=== PATIENT | female | born 1955 | race African-American/Black ===

== ENCOUNTER 2017-06-28 07:48 | Inpatient (IN) | payer MEDICARE, MEDICAID ==
[~2017-06-28] VITALS: Ht 157.5 cm; Wt 73.5 kg
[~2017-06-28 07:48] MED LIST: CLON.2 PO; HYDR25TA PO; LISI-661 PO; METH10SO PO
[2017-06-28] MEDS ORDERED: METH10 PO (07:57)
[2017-06-28] MEDS ORDERED: QUET200T PO (07:57)
[2017-06-28] MEDS ORDERED: CloNIDine HCL 0.2 MG TABLET PO ONE (08:15)
[2017-06-28 08:25] LABS: BASOPHILS % (AUTO) 0.7 % (0.0-2.0); EOSINOPHILS % (AUTO) 1.2 % (1.0-6.0); HEMATOCRIT 45.2 % (36-46); HEMOGLOBIN 14.9 g/dL (12.0-16.0); LYMPHOCYTES # (AUTO) 3.8 K/uL (1.0-4.8); LYMPHOCYTES % (AUTO) 37.5 % (22.0-44.0); MEAN CORPUSCULAR HEMOGLOBIN 26.3 pg (26.0-34.0); MEAN CORPUSCULAR HGB CONC 32.9 G/dL (31.0-37.0); MEAN CORPUSCULAR VOLUME 80 fL (80-100); MONOCYTES # (AUTO) 0.5 K/uL (0.1-1.0); MONOCYTES % (AUTO) 4.7 % (2.0-9.0); NEUTROPHILS # (AUTO) 5.6 K/uL (1.8-7.7); NEUTROPHILS % (AUTO) 55.9 % (40.0-70.0); PLATELET COUNT (AUTO) 251 K/uL (150-450); RED BLOOD CELL COUNT(AUTO) 5.67 MIL/uL (4.00-5.20); RED CELL DISTRIBUTION WIDTH 13.8 % (11.5-14.5)
[2017-06-28 08:33] LABS: ANION GAP 6 mmol/L (8-16); CALCIUM, TOTAL 8.9 mg/dL (8.8-10.5); CARBON DIOXIDE 33 mmol/L (22-29); CHLORIDE 100 mmol/L (98-107); CREATININE 1.08 mg/dL (0.60-1.30); GLOMERULAR FILTR. RATE CALC > 60 mL/min (>60); POTASSIUM 3.6 mmol/L (3.5-5.1); SODIUM SERUM 139 mmol/L (136-145); UREA NITROGEN, BLOOD 8 mg/dL (7-18)
[2017-06-28 08:39] LABS: ALANINE AMINOTRANSFERASE 28 U/L (12-78); ALBUMIN 3.9 g/dL (3.4-5.0); ASPARTATE AMINOTRANSFERASE 30 U/L (15-37); BILIRUBIN,TOTAL 0.3 mg/dL (0.1-1.0)
[2017-06-28 08:41] LABS: ACETAMINOPHEN < 2 mcg/mL (10-30); SALICYLATE < 2.8 mg/dL (2.8-20.0)
[2017-06-28] MEDS ORDERED: HALOPERIDOL 5 MG TABLET PO PRN (09:15)
[2017-06-28 12:20] VITALS: BP 157/101
[2017-06-28] MEDS ORDERED: PNEUMOCOCCAL VACCINE POLYVALENT 0.5 ML VIAL [PPSV23] IM ONE (13:00)
[2017-06-28] MEDS ORDERED: INFLUENZA VIRUS VACCINE QVS 2017-18 (3YR+)/PF 60 MCG/0.5 ML SYRINGE IM ONE (13:00)
[2017-06-28] MEDS ORDERED: AmLODIPine BESYLATE 10 MG TABLET PO ONE (13:15)
[2017-06-28] MEDS: LORazepam 2 MG TABLET PO PRN (15:00)
[2017-06-28 15:01] VITALS: BP 141/76
[2017-06-28 16:10] VITALS: BP 150/86
[2017-06-28] MEDS: CloNIDine HCL 0.2 MG TABLET PO SCH (16:30)
[2017-06-28 17:30] VITALS: BP 144/82
[2017-06-28] MEDS: ZOLPIDEM TARTRATE 10 MG TABLET PO PRN (22:26)
[2017-06-29 06:40] VITALS: BP 148/84
[2017-06-29] MEDS: LORazepam 2 MG TABLET PO PRN (06:52)
[2017-06-29 08:37] VITALS: BP 134/82
[2017-06-29] MEDS: CloNIDine HCL 0.2 MG TABLET PO SCH ×2 (08:54→16:13)
[2017-06-29] MEDS: AmLODIPine BESYLATE 10 MG TABLET PO SCH (08:54)
[2017-06-29] MEDS: QUEtiapine FUMARATE 200 MG TABLET PO SCH ×2 (10:32→16:13)
[2017-06-29 16:06] VITALS: BP 109/61
[2017-06-29] MEDS ORDERED: IBUPROFEN 600 MG TABLET PO PRN (16:45)
[2017-06-29 17:51] VITALS: BP 113/68
[2017-06-30 05:58] VITALS: BP 136/77
[2017-06-30] MEDS: QUEtiapine FUMARATE 200 MG TABLET PO SCH ×2 (08:11→17:35)
[2017-06-30] MEDS: CloNIDine HCL 0.2 MG TABLET PO SCH ×2 (08:11→17:35)
[2017-06-30] MEDS: AmLODIPine BESYLATE 10 MG TABLET PO SCH (08:11)
[2017-06-30 08:36] VITALS: BP 111/64
[2017-06-30] MEDS ORDERED: PROMETHAZINE HCL 25 MG/ML VIAL IM PRN (11:45)
[2017-06-30] MEDS ORDERED: IBUPROFEN 600 MG TABLET PO PRN (11:45)
[2017-06-30] MEDS ORDERED: MAG HYDROX/AL HYDROX/SIMETH ES 30 ML SUSPENSION UDCUP PO PRN (11:45)
[2017-06-30] MEDS ORDERED: HydrOXYzine PAMOATE 50 MG CAPSULE PO PRN (11:45)
[2017-06-30 12:00] VITALS: BP 113/66
[2017-06-30] MEDS: LORazepam 2 MG TABLET PO PRN ×2 (15:15→19:52)
[2017-06-30 16:23] VITALS: BP 102/64
[2017-06-30 17:35] VITALS: BP 126/82
[2017-06-30 19:00] VITALS: BP 114/67
[2017-06-30] MEDS: ZOLPIDEM TARTRATE 10 MG TABLET PO PRN (22:12)
[2017-07-01] VITALS (8 sets, daily range): BP systolic 112–125; BP diastolic 70–88
[2017-07-01] MEDS: LORazepam 2 MG TABLET PO PRN ×2 (00:03→18:58)
[2017-07-01] MEDS: CloNIDine HCL 0.2 MG TABLET PO SCH ×2 (08:59→17:11)
[2017-07-01] MEDS: QUEtiapine FUMARATE 200 MG TABLET PO SCH ×2 (08:59→17:11)
[2017-07-02 02:31] VITALS: BP 127/73
[2017-07-02 04:26] VITALS: BP 127/73
[2017-07-02 08:06] VITALS: BP 138/88
[2017-07-02] MEDS: LORazepam 2 MG TABLET PO PRN ×2 (08:17→19:12)
[2017-07-02] MEDS: QUEtiapine FUMARATE 200 MG TABLET PO SCH ×2 (08:17→16:34)
[2017-07-02] MEDS: CloNIDine HCL 0.2 MG TABLET PO SCH ×2 (08:17→16:34)
[2017-07-02 09:53] VITALS: BP 138/88
[2017-07-02 16:00] VITALS: BP 134/86
[2017-07-02 16:07] VITALS: BP 134/86
[2017-07-02] MEDS: ZOLPIDEM TARTRATE 10 MG TABLET PO PRN (21:54)
[2017-07-03 01:56] VITALS: BP 137/89
[2017-07-03 02:00] VITALS: BP 137/89
[2017-07-03] MEDS: LORazepam 2 MG TABLET PO PRN (08:23)
[2017-07-03] MEDS: QUEtiapine FUMARATE 200 MG TABLET PO SCH (08:23)
[2017-07-03] MEDS: CloNIDine HCL 0.2 MG TABLET PO SCH (08:23)
[2017-07-03 08:43] VITALS: BP 135/92
== END 2017-07-03 16:30 | disposition home or self-care (01) | DRG 885 ==
LOC: EMS 07:50 → B2X 10:29
PROC: 3E0234Z Introduction of Serum, Toxoid and Vaccine into Muscle, Percutaneous Approach (ICD-10-PCS; principal; 2017-06-28)
DX: F31.5 Bipolar disorder, current episode depressed, severe, with psychotic features (principal); E11.9 Type 2 diabetes mellitus without complications; R45.851 Suicidal ideations; F15.90 Other stimulant use, unspecified, uncomplicated; G89.29 Other chronic pain; I10 Essential (primary) hypertension; J45.909 Unspecified asthma, uncomplicated; M19.90 Unspecified osteoarthritis, unspecified site; Z59.0 Homelessness; Z79.899 Other long term (current) drug therapy; Z87.891 Personal history of nicotine dependence; Z91.5 Personal history of self-harm; Z23 Encounter for immunization
CPT/HCPCS: 90471; 99285; G0480; G0481

== ENCOUNTER 2017-08-15 21:38 | Inpatient (IN) | payer MEDICARE, MEDICAID ==
[~2017-08-15] VITALS: Ht 157.5 cm; Wt 80.3 kg
[~2017-08-15 21:38] MED LIST changes: -HYDR25TA PO; -LISI-661 PO; -METH10SO PO; +QUET200T PO
[2017-08-15] MEDS ORDERED: TRAZ150 PO (22:37)
[2017-08-15] MEDS ORDERED: FAMO20 PO (22:37)
[2017-08-15] MEDS ORDERED: NAPR250T4 PO (22:38)
[2017-08-15 22:49] LABS: BASOPHILS # (AUTO) 0.06 K/uL (0.00-0.20); BASOPHILS % (AUTO) 0.5 % (0.0-2.0); EOSINOPHILS # (AUTO) 0.31 K/uL (0.00-0.70); EOSINOPHILS % (AUTO) 2.68 % (1.0-6.0); HEMATOCRIT 37.8 % (36-46); HEMOGLOBIN 12.1 g/dL (12.0-16.0); LYMPHOCYTES # (AUTO) 5.9 K/uL (1.0-4.8); LYMPHOCYTES % (AUTO) 50.9 % (22.0-44.0); MEAN CORPUSCULAR HEMOGLOBIN 25.7 pg (26.0-34.0); MEAN CORPUSCULAR HGB CONC 31.9 G/dL (31.0-37.0); MEAN CORPUSCULAR VOLUME 81 fL (80-100); MONOCYTES # (AUTO) 0.9 K/uL (0.1-1.0); MONOCYTES % (AUTO) 7.5 % (2.0-9.0); NEUTROPHILS # (AUTO) 4.5 K/uL (1.8-7.7); NEUTROPHILS % (AUTO) 38.5 % (40.0-70.0); PLATELET COUNT (AUTO) 306 K/uL (150-450); RED CELL DISTRIBUTION WIDTH 14.3 % (11.5-14.5); WHITE BLOOD COUNT (AUTO) 11.6 K/uL (4.5-11.0)
[2017-08-15 23:00] LABS: ANION GAP 8 mmol/L (8-16); CALCIUM, TOTAL 8.9 mg/dL (8.8-10.5); CARBON DIOXIDE 28 mmol/L (22-29); CHLORIDE 102 mmol/L (98-107); CREATININE 0.99 mg/dL (0.60-1.30); GLOMERULAR FILTR. RATE CALC > 60 mL/min (>60); POTASSIUM 4.2 mmol/L (3.5-5.1); SODIUM SERUM 138 mmol/L (136-145); UREA NITROGEN, BLOOD 22 mg/dL (7-18)
[2017-08-15 23:05] LABS: ALANINE AMINOTRANSFERASE 30 U/L (12-78); ALBUMIN 3.7 g/dL (3.4-5.0); ASPARTATE AMINOTRANSFERASE 27 U/L (15-37); BILIRUBIN,TOTAL 0.2 mg/dL (0.1-1.0); TOTAL PROTEIN, SERUM 7.9 g/dL (6.4-8.2)
[2017-08-16] MEDS ORDERED: ACETAMINOPHEN 500 MG TABLET PO ONE (00:30)
[2017-08-16] MEDS: ZOLPIDEM TARTRATE 10 MG TABLET PO PRN (02:28)
[2017-08-16 03:51] VITALS: BP 102/62
[2017-08-16 04:28] LABS: APPEARANCE,URINE CLEAR (CLEAR); GLUCOSE, URINE (UA) NEGATIVE (NEGATIVE); KETONES,URINE NEGATIVE (NEGATIVE); LEUKOCYTE ESTERASE ,URINE MODERATE (NEGATIVE); OCCULT BLOOD,URINE NEGATIVE (NEGATIVE); PH,URINE 6.5 (5.0-8.0); PROTEIN,URINE NEGATIVE (NEGATIVE)
[2017-08-16 04:31] LABS: ADD UA MICROSCOPIC YES
[2017-08-16 04:43] LABS: RBC,URINE None Seen /HPF (0-2); RENAL EPITHELIAL CELLS,URINE Few /LPF (None Seen); SQUAMOUS EPITHELIAL CELL,UR Few /LPF (None Seen)
[2017-08-16] MEDS ORDERED: PNEUMOCOCCAL VACCINE POLYVALENT 0.5 ML VIAL [PPSV23] IM ONE (05:45)
[2017-08-16] MEDS: LORazepam 2 MG TABLET PO PRN (08:37)
[2017-08-16] MEDS: CIPROFLOXACIN HCL 500 MG TABLET PO SCH ×2 (08:37→16:18)
[2017-08-16] MEDS: HALOPERIDOL 5 MG TABLET PO PRN (08:37)
[2017-08-16 09:57] VITALS: BP 157/79
[2017-08-16] MEDS: IBUPROFEN 600 MG TABLET PO PRN (09:57)
[2017-08-16] MEDS: QUEtiapine FUMARATE 200 MG TABLET PO SCH (16:19)
[2017-08-16 17:00] VITALS: BP 138/77
[2017-08-16] MEDS: TraZODone HCL 150 MG TABLET PO SCH (20:21)
[2017-08-17 02:25] VITALS: BP 173/77
[2017-08-17] MEDS: ZOLPIDEM TARTRATE 10 MG TABLET PO PRN (02:29)
[2017-08-17] MEDS: LORazepam 2 MG TABLET PO PRN ×3 (02:30→14:40)
[2017-08-17] MEDS: QUEtiapine FUMARATE 200 MG TABLET PO SCH ×2 (08:05→16:55)
[2017-08-17] MEDS: CIPROFLOXACIN HCL 500 MG TABLET PO SCH ×2 (08:05→16:55)
[2017-08-17 08:15] VITALS: BP 161/72
[2017-08-17] MEDS: HALOPERIDOL 5 MG TABLET PO PRN ×2 (10:40→14:40)
[2017-08-17 16:57] VITALS: BP 149/90
[2017-08-17] MEDS: TraZODone HCL 150 MG TABLET PO SCH (20:13)
[2017-08-18 03:42] VITALS: BP 144/91
[2017-08-18] MEDS: LORazepam 2 MG TABLET PO PRN ×2 (03:45→14:29)
[2017-08-18 08:45] VITALS: BP 152/103
[2017-08-18] MEDS: QUEtiapine FUMARATE 200 MG TABLET PO SCH ×2 (09:00→16:43)
[2017-08-18] MEDS: CIPROFLOXACIN HCL 500 MG TABLET PO SCH ×2 (09:00→16:42)
[2017-08-18] MEDS: AmLODIPine BESYLATE 5 MG TABLET PO SCH (09:39)
[2017-08-18] MEDS: IBUPROFEN 600 MG TABLET PO PRN (10:53)
[2017-08-18] MEDS: HALOPERIDOL 5 MG TABLET PO PRN (14:29)
[2017-08-18] MEDS: TraZODone HCL 150 MG TABLET PO SCH (20:23)
[2017-08-19] MEDS: QUEtiapine FUMARATE 200 MG TABLET PO SCH (08:11)
[2017-08-19] MEDS: AmLODIPine BESYLATE 5 MG TABLET PO SCH (08:11)
[2017-08-19] MEDS: CIPROFLOXACIN HCL 500 MG TABLET PO SCH (08:11)
[2017-08-19 09:05] VITALS: BP 152/95
[2017-08-19] MEDS: IBUPROFEN 600 MG TABLET PO PRN (09:08)
[2017-08-19] MEDS: LORazepam 2 MG TABLET PO PRN (10:16)
[2017-08-19] MEDS ORDERED: CIPR-278 PO (10:42)
[2017-08-19] MEDS ORDERED: AMLO-511 PO (10:42)
== END 2017-08-19 14:10 | disposition home or self-care (01) | DRG 885 ==
LOC: EMS 21:40 → 3EX 23:45
PROVIDERS: ADMIT Psychiatry & Neurology Child & Adolescent Psychiatry; ATTEND Psychiatry & Neurology Child & Adolescent Psychiatry
PROC: 3E0234Z Introduction of Serum, Toxoid and Vaccine into Muscle, Percutaneous Approach (ICD-10-PCS; principal; 2017-08-16)
DX: F25.1 Schizoaffective disorder, depressive type (principal); R45.851 Suicidal ideations; R45.850 Homicidal ideations; N39.0 Urinary tract infection, site not specified; F17.210 Nicotine dependence, cigarettes, uncomplicated; I10 Essential (primary) hypertension; F19.11 Other psychoactive substance abuse, in remission; J45.909 Unspecified asthma, uncomplicated; M19.90 Unspecified osteoarthritis, unspecified site; F31.9 Bipolar disorder, unspecified; Z71.6 Tobacco abuse counseling; Z79.899 Other long term (current) drug therapy; Z23 Encounter for immunization
CPT/HCPCS: 80307; 87086; 90471; 99285; 99406; G0480

== ENCOUNTER 2018-02-07 09:23 | Inpatient (IN) | payer MEDICARE, MEDICAID ==
[~2018-02-07] VITALS: Ht 157.5 cm; Wt 78.9 kg
[~2018-02-07 09:23] MED LIST changes: +AMLO-511 PO; +CIPR-278 PO; -CLON.2 PO; +TRAZ150 PO
[2018-02-07 09:43] LABS: EOSINOPHILS % (AUTO) 0.6 % (1.0-6.0); HEMATOCRIT 39.4 % (36-46); HEMOGLOBIN 13.1 g/dL (12.0-16.0); LYMPHOCYTES # (AUTO) 2.5 K/uL (1.0-4.8); LYMPHOCYTES % (AUTO) 37.1 % (22.0-44.0); MEAN CORPUSCULAR HEMOGLOBIN 26.3 pg (26.0-34.0); MEAN CORPUSCULAR HGB CONC 33.2 G/dL (31.0-37.0); MEAN CORPUSCULAR VOLUME 79 fL (80-100); MONOCYTES # (AUTO) 0.5 K/uL (0.1-1.0); MONOCYTES % (AUTO) 7.5 % (2.0-9.0); NEUTROPHILS # (AUTO) 3.5 K/uL (1.8-7.7); NEUTROPHILS % (AUTO) 52.8 % (40.0-70.0); PLATELET COUNT (AUTO) 228 K/uL (150-450); RED BLOOD CELL COUNT(AUTO) 4.97 MIL/uL (4.00-5.20); RED CELL DISTRIBUTION WIDTH 14.6 % (11.5-14.5)
[2018-02-07 09:53] LABS: ANION GAP 12 mmol/L (8-16); CALCIUM, TOTAL 8.7 mg/dL (8.8-10.5); CARBON DIOXIDE 27 mmol/L (22-29); CHLORIDE 105 mmol/L (98-107); CREATININE 0.95 mg/dL (0.60-1.30); GLOMERULAR FILTR. RATE CALC > 60 mL/min (>60); GLUCOSE,RANDOM 105 mg/dL (70-110); POTASSIUM 3.5 mmol/L (3.5-5.1); SODIUM SERUM 144 mmol/L (136-145); UREA NITROGEN, BLOOD 7 mg/dL (7-18)
[2018-02-07 09:59] LABS: ALANINE AMINOTRANSFERASE 32 U/L (12-78); ALBUMIN 3.7 g/dL (3.4-5.0); ALKALINE PHOSPHATASE 77 U/L (46-116); ASPARTATE AMINOTRANSFERASE 33 U/L (15-37); BILIRUBIN,TOTAL 0.3 mg/dL (0.1-1.0); TOTAL PROTEIN, SERUM 8.5 g/dL (6.4-8.2)
[2018-02-07] MEDS ORDERED: LORazepam 1 MG TABLET PO ONE (10:30)
[2018-02-07] MEDS ORDERED: QUEtiapine FUMARATE 100 MG TABLET PO ONE (10:30)
[2018-02-07] MEDS ORDERED: QUEtiapine FUMARATE 100 MG TABLET PO PRN (10:45)
[2018-02-07 10:55] LABS: AMPHET/METH SCREEN,URINE NEGATIVE (NEGATIVE); BARBITURATE SCREEN, URINE NEGATIVE (NEGATIVE); BENZODIAZEPINES SCREEN,URINE POSITIVE (NEGATIVE); CANNABINOID SCREEN,URINE NEGATIVE (NEGATIVE); COCAINE SCREEN,URINE POSITIVE (NEGATIVE); METHADONE SCREEN, URINE NEGATIVE (NEGATIVE); OPIATE SCREEN,URINE NEGATIVE (NEGATIVE); PHENCYCLIDINE SCREEN,URINE NEGATIVE (NEGATIVE)
[2018-02-07 13:13] VITALS: BP 135/67
[2018-02-07 16:06] VITALS: BP 142/78
[2018-02-08 07:20] VITALS: BP 143/62
[2018-02-08 08:11] VITALS: BP 136/74
[2018-02-08] MEDS: LORazepam 2 MG TABLET PO PRN (10:17)
[2018-02-08] MEDS ORDERED: ACETAMINOPHEN 325 MG TABLET PO PRN (14:45)
[2018-02-08 16:16] VITALS: BP 130/64
[2018-02-08] MEDS: IBUPROFEN 600 MG TABLET PO PRN (16:23)
[2018-02-08] MEDS: QUEtiapine FUMARATE 200 MG TABLET PO SCH (16:34)
[2018-02-09 02:10] VITALS: BP 132/72
[2018-02-09] MEDS: IBUPROFEN 600 MG TABLET PO PRN ×2 (02:10→08:14)
[2018-02-09] MEDS: QUEtiapine FUMARATE 200 MG TABLET PO SCH ×2 (08:05→16:49)
[2018-02-09] MEDS: SERTRALINE HCL 50 MG TABLET PO SCH (08:05)
[2018-02-09 08:14] VITALS: BP 125/71
[2018-02-09] MEDS: LORazepam 2 MG TABLET PO PRN (10:39)
[2018-02-09 16:31] VITALS: BP 127/73
[2018-02-10 00:01] VITALS: BP 130/89
[2018-02-10 02:39] VITALS: BP 132/90
[2018-02-10 08:26] VITALS: BP 126/73
[2018-02-10] MEDS: SERTRALINE HCL 50 MG TABLET PO SCH (08:32)
[2018-02-10] MEDS: QUEtiapine FUMARATE 200 MG TABLET PO SCH ×2 (08:32→16:44)
[2018-02-10 09:16] LABS: ALANINE AMINOTRANSFERASE 22 U/L (12-78); ALBUMIN 3.5 g/dL (3.4-5.0); ALKALINE PHOSPHATASE 65 U/L (46-116); ANION GAP 7 mmol/L (8-16); ASPARTATE AMINOTRANSFERASE 20 U/L (15-37); BILIRUBIN,TOTAL 0.3 mg/dL (0.1-1.0); CALCIUM, TOTAL 8.6 mg/dL (8.8-10.5); CARBON DIOXIDE 29 mmol/L (22-29); CHLORIDE 103 mmol/L (98-107); CHOL/HDL RATIO 3.2 (3.9-5.7); CHOLESTEROL 185 mg/dL (131-200); CREATINE KINASE, TOTAL 47 U/L (26-192); CREATININE 0.99 mg/dL (0.60-1.30); GLOMERULAR FILTR. RATE CALC > 60 mL/min (>60); GLUCOSE,RANDOM 89 mg/dL (70-110); HDL CHOLESTEROL 57 mg/dL (40-60); LDL CHOL (CALC.) 107 mg/dL (0-130); POTASSIUM 3.6 mmol/L (3.5-5.1); SODIUM SERUM 139 mmol/L (136-145); THYROID STIMULATING HORMONE 1.81 uIU/mL (0.36-3.74); TOTAL PROTEIN, SERUM 8.2 g/dL (6.4-8.2); TRIGLYCERIDES 104 mg/dL (15-150); UREA NITROGEN, BLOOD 15 mg/dL (7-18)
[2018-02-10 10:03] LABS: FOLATE SERUM 7.4 ng/mL (5.4-)
[2018-02-10 16:21] VITALS: BP 129/77
[2018-02-10 17:01] VITALS: BP 127/67
[2018-02-10] MEDS: TraMADol HCL 50 MG TABLET PO PRN (17:01)
[2018-02-10] MEDS: BACITRACIN 28.4 GM OINTMENT TP SCH (17:01)
[2018-02-10] MEDS: ZOLPIDEM TARTRATE 10 MG TABLET PO PRN (23:52)
[2018-02-11 00:01] VITALS: BP 130/76
[2018-02-11] MEDS: LORazepam 2 MG TABLET PO PRN (05:27)
[2018-02-11] MEDS: QUEtiapine FUMARATE 200 MG TABLET PO SCH ×2 (08:34→16:38)
[2018-02-11] MEDS: SERTRALINE HCL 50 MG TABLET PO SCH (08:34)
[2018-02-11] MEDS: BACITRACIN 28.4 GM OINTMENT TP SCH ×2 (08:37→16:38)
[2018-02-11 08:41] VITALS: BP 130/90
[2018-02-11 16:08] VITALS: BP 119/64
[2018-02-11] MEDS: ZOLPIDEM TARTRATE 10 MG TABLET PO PRN (21:00)
[2018-02-12 01:24] VITALS: BP 137/80
[2018-02-12] MEDS: LORazepam 2 MG TABLET PO PRN ×2 (03:27→14:19)
[2018-02-12 07:46] VITALS: BP 140/77
[2018-02-12] MEDS: QUEtiapine FUMARATE 200 MG TABLET PO SCH ×2 (08:20→16:44)
[2018-02-12] MEDS: BACITRACIN 28.4 GM OINTMENT TP SCH ×2 (08:20→16:45)
[2018-02-12] MEDS: SERTRALINE HCL 50 MG TABLET PO SCH (08:20)
[2018-02-12 08:28] VITALS: BP 140/77
[2018-02-12 16:35] VITALS: BP 117/76
[2018-02-12] MEDS: ZOLPIDEM TARTRATE 10 MG TABLET PO PRN (20:54)
[2018-02-13] MEDS: LORazepam 2 MG TABLET PO PRN ×2 (02:10→08:21)
[2018-02-13 03:18] VITALS: BP 138/72
[2018-02-13] MEDS: SERTRALINE HCL 50 MG TABLET PO SCH (08:16)
[2018-02-13] MEDS: QUEtiapine FUMARATE 200 MG TABLET PO SCH ×2 (08:16→16:38)
[2018-02-13] MEDS: BACITRACIN 28.4 GM OINTMENT TP SCH ×2 (08:17→16:38)
[2018-02-13 08:30] VITALS: BP 140/79
[2018-02-13 14:39] VITALS: BP 141/89
[2018-02-13] MEDS: TraMADol HCL 50 MG TABLET PO PRN (14:39)
[2018-02-13 16:19] VITALS: BP 132/82
[2018-02-13] MEDS: ZOLPIDEM TARTRATE 10 MG TABLET PO PRN (21:05)
[2018-02-14 01:38] VITALS: BP 131/69
[2018-02-14] MEDS: LORazepam 2 MG TABLET PO PRN ×3 (03:11→15:41)
[2018-02-14 08:10] VITALS: BP 128/98
[2018-02-14] MEDS: SERTRALINE HCL 50 MG TABLET PO SCH (08:26)
[2018-02-14] MEDS: BACITRACIN 28.4 GM OINTMENT TP SCH ×2 (08:27→17:09)
[2018-02-14] MEDS: QUEtiapine FUMARATE 200 MG TABLET PO SCH ×2 (08:27→17:09)
[2018-02-14 09:03] VITALS: BP 125/84
[2018-02-14 16:06] VITALS: BP 125/85
[2018-02-14 19:20] VITALS: BP 137/81
[2018-02-14] MEDS: TraMADol HCL 50 MG TABLET PO PRN (19:20)
[2018-02-15 03:50] VITALS: BP 140/75
[2018-02-15] MEDS: LORazepam 2 MG TABLET PO PRN ×2 (03:50→08:15)
[2018-02-15] MEDS: SERTRALINE HCL 50 MG TABLET PO SCH (08:10)
[2018-02-15] MEDS: QUEtiapine FUMARATE 200 MG TABLET PO SCH ×2 (08:10→16:08)
[2018-02-15] MEDS: BACITRACIN 28.4 GM OINTMENT TP SCH ×2 (08:11→16:08)
[2018-02-15 08:31] VITALS: BP 132/82
[2018-02-15 16:15] VITALS: BP 136/76
[2018-02-15] MEDS: ZOLPIDEM TARTRATE 10 MG TABLET PO PRN (20:14)
[2018-02-16 06:26] VITALS: BP 134/72
[2018-02-16 08:35] VITALS: BP 127/76
[2018-02-16] MEDS: QUEtiapine FUMARATE 200 MG TABLET PO SCH ×2 (08:59→16:38)
[2018-02-16] MEDS: SERTRALINE HCL 100 MG TABLET PO SCH (08:59)
[2018-02-16] MEDS: BACITRACIN 28.4 GM OINTMENT TP SCH ×2 (08:59→16:38)
[2018-02-16] MEDS: LORazepam 2 MG TABLET PO PRN (12:15)
[2018-02-16 16:31] VITALS: BP 137/81
[2018-02-16] MEDS: ZOLPIDEM TARTRATE 10 MG TABLET PO PRN (20:55)
[2018-02-17 05:32] VITALS: BP 129/77
[2018-02-17] MEDS ORDERED: SERT100T12 PO (07:45)
[2018-02-17] MEDS: QUEtiapine FUMARATE 200 MG TABLET PO SCH (08:19)
[2018-02-17] MEDS: SERTRALINE HCL 100 MG TABLET PO SCH (08:19)
[2018-02-17 08:20] VITALS: BP 140/89
[2018-02-17] MEDS: BACITRACIN 28.4 GM OINTMENT TP SCH (08:20)
[2018-02-17] MEDS: LORazepam 2 MG TABLET PO PRN ×2 (08:35→13:49)
== END 2018-02-17 15:30 | disposition home or self-care (01) | DRG 885 ==
LOC: EMS 09:25 → B2X 11:32
DX: F25.0 Schizoaffective disorder, bipolar type (principal); R45.851 Suicidal ideations; M41.9 Scoliosis, unspecified; Z59.0 Homelessness; D72.829 Elevated white blood cell count, unspecified; E03.9 Hypothyroidism, unspecified; R45.87 Impulsiveness; F32.9 Major depressive disorder, single episode, unspecified; F41.9 Anxiety disorder, unspecified; G89.29 Other chronic pain; I10 Essential (primary) hypertension; M19.90 Unspecified osteoarthritis, unspecified site; F12.90 Cannabis use, unspecified, uncomplicated; F15.10 Other stimulant abuse, uncomplicated; F17.210 Nicotine dependence, cigarettes, uncomplicated; F14.10 Cocaine abuse, uncomplicated; Z91.19 Patient's noncompliance with other medical treatment and regimen; Z79.899 Other long term (current) drug therapy; Z87.440 Personal history of urinary (tract) infections; Z91.5 Personal history of self-harm
CPT/HCPCS: 80074; 82306; 82607; 82746; 83735; 84443; 99285; G0480

== ENCOUNTER 2018-02-24 09:52 | Inpatient (IN) | payer MEDICARE, MEDICAID ==
[~2018-02-24] VITALS: Ht 157.5 cm; Wt 78.8 kg
[~2018-02-24 09:52] MED LIST changes: -AMLO-511 PO; -CIPR-278 PO; +SERT100T12 PO; -TRAZ150 PO
[2018-02-24] MEDS ORDERED: HYDR-4031 PO (10:04)
[2018-02-24] MEDS ORDERED: TRAZ-144 PO (10:04)
[2018-02-24] MEDS ORDERED: CLON.2 PO (10:04)
[2018-02-24 10:18] LABS: BASOPHILS % (AUTO) 0.9 % (0.0-2.0); EOSINOPHILS % (AUTO) 0.4 % (1.0-6.0); HEMATOCRIT 42.9 % (36-46); HEMOGLOBIN 14.2 g/dL (12.0-16.0); LYMPHOCYTES # (AUTO) 3.4 K/uL (1.0-4.8); LYMPHOCYTES % (AUTO) 36.5 % (22.0-44.0); MEAN CORPUSCULAR HEMOGLOBIN 26.3 pg (26.0-34.0); MEAN CORPUSCULAR HGB CONC 33.2 G/dL (31.0-37.0); MEAN CORPUSCULAR VOLUME 79 fL (80-100); MONOCYTES # (AUTO) 0.5 K/uL (0.1-1.0); MONOCYTES % (AUTO) 5.2 % (2.0-9.0); NEUTROPHILS # (AUTO) 5.3 K/uL (1.8-7.7); PLATELET COUNT (AUTO) 401 K/uL (150-450); RED BLOOD CELL COUNT(AUTO) 5.42 MIL/uL (4.00-5.20)
[2018-02-24 10:31] LABS: ANION GAP 8 mmol/L (8-16); CALCIUM, TOTAL 8.8 mg/dL (8.8-10.5); CARBON DIOXIDE 29 mmol/L (22-29); CHLORIDE 103 mmol/L (98-107); CREATININE 1.18 mg/dL (0.60-1.30); GLOMERULAR FILTR. RATE CALC 56 mL/min (>60); GLUCOSE,RANDOM 96 mg/dL (70-110); POTASSIUM 3.4 mmol/L (3.5-5.1); SODIUM SERUM 140 mmol/L (136-145); UREA NITROGEN, BLOOD 14 mg/dL (7-18)
[2018-02-24 10:37] LABS: ALANINE AMINOTRANSFERASE 59 U/L (12-78); ALKALINE PHOSPHATASE 91 U/L (46-116); ASPARTATE AMINOTRANSFERASE 50 U/L (15-37); BILIRUBIN,TOTAL 0.2 mg/dL (0.1-1.0); TOTAL PROTEIN, SERUM 8.9 g/dL (6.4-8.2)
[2018-02-24 11:08] LABS: AMPHET/METH SCREEN,URINE NEGATIVE (NEGATIVE); BARBITURATE SCREEN, URINE NEGATIVE (NEGATIVE); BENZODIAZEPINES SCREEN,URINE POSITIVE (NEGATIVE); CANNABINOID SCREEN,URINE POSITIVE (NEGATIVE); COCAINE SCREEN,URINE POSITIVE (NEGATIVE); METHADONE SCREEN, URINE NEGATIVE (NEGATIVE); OPIATE SCREEN,URINE NEGATIVE (NEGATIVE)
[2018-02-24 11:09] LABS: PHENCYCLIDINE SCREEN,URINE NEGATIVE (NEGATIVE)
[2018-02-24] MEDS ORDERED: ACETAMINOPHEN 500 MG TABLET PO ONE (11:15)
[2018-02-24 11:39] LABS: APPEARANCE,URINE CLEAR (CLEAR); BILIRUBIN,URINE NEGATIVE (NEGATIVE); GLUCOSE, URINE (UA) NEGATIVE (NEGATIVE); KETONES,URINE NEGATIVE (NEGATIVE); LEUKOCYTE ESTERASE ,URINE NEGATIVE (NEGATIVE); NITRATE,URINE NEGATIVE (NEGATIVE); OCCULT BLOOD,URINE NEGATIVE (NEGATIVE); PROTEIN,URINE POS 1+ (NEGATIVE)
[2018-02-24] MEDS ORDERED: POTASSIUM CHLORIDE 20 MEQ ER TABLET PO ONE (11:45)
[2018-02-24 11:52] LABS: BACTERIA,URINE Few /HPF (None Seen); RBC,URINE 0-2 /HPF (0-2); SQUAMOUS EPITHELIAL CELL,UR Few /LPF (None Seen); WBC,URINE 0-2 /HPF (0-5)
[2018-02-24] MEDS ORDERED: QUEtiapine FUMARATE 100 MG TABLET PO ONE (14:00)
[2018-02-24] MEDS ORDERED: LORazepam 1 MG TABLET PO ONE (14:00)
[2018-02-24] MEDS ORDERED: CloNIDine HCL 0.2 MG TABLET PO ONE (15:00)
[2018-02-24 17:00] VITALS: BP 108/75
[2018-02-24] MEDS: QUEtiapine FUMARATE 200 MG TABLET PO SCH (17:15)
[2018-02-24] MEDS ORDERED: -PHARMACY VACCINE NOTE- MISC ONE (18:00)
[2018-02-24] MEDS ORDERED: ACETAMINOPHEN 325 MG TABLET PO PRN (20:15)
[2018-02-24] MEDS ORDERED: IBUPROFEN 400 MG TABLET PO PRN (20:15)
[2018-02-25 03:24] VITALS: BP 141/81
[2018-02-25] MEDS: LORazepam 2 MG TABLET PO PRN ×3 (03:26→14:27)
[2018-02-25 08:00] VITALS: BP 134/69
[2018-02-25] MEDS: QUEtiapine FUMARATE 200 MG TABLET PO SCH ×2 (08:34→20:48)
[2018-02-25] MEDS ORDERED: SERTRALINE HCL 100 MG TABLET PO SCH (09:00)
[2018-02-25] MEDS ORDERED: IBUPROFEN 400 MG TABLET PO PRN (12:00)
[2018-02-25] MEDS ORDERED: ACETAMINOPHEN 325 MG TABLET PO PRN (12:00)
[2018-02-25] MEDS: QUEtiapine FUMARATE 100 MG TABLET PO PRN (15:48)
[2018-02-25 16:09] VITALS: BP 146/83
[2018-02-25 19:00] VITALS: BP 140/79
[2018-02-25] MEDS: ZOLPIDEM TARTRATE 10 MG TABLET PO PRN (22:02)
[2018-02-26 05:20] VITALS: BP 139/89
[2018-02-26] MEDS: LORazepam 2 MG TABLET PO PRN ×2 (05:34→18:35)
[2018-02-26] MEDS: SERTRALINE HCL 100 MG TABLET PO SCH (08:11)
[2018-02-26] MEDS: QUEtiapine FUMARATE 200 MG TABLET PO SCH ×2 (08:11→20:45)
[2018-02-26 09:12] LABS: HEMOGLOBIN A1C 6.2 % (4.5-6.2)
[2018-02-26] MEDS: AmLODIPine BESYLATE 5 MG TABLET PO SCH (09:16)
[2018-02-26 09:37] LABS: POTASSIUM 4.2 mmol/L (3.5-5.1); THYROID STIMULATING HORMONE 1.45 uIU/mL (0.36-3.74)
[2018-02-26 10:21] VITALS: BP 131/76
[2018-02-26] MEDS: QUEtiapine FUMARATE 100 MG TABLET PO PRN (13:01)
[2018-02-26 16:07] VITALS: BP 137/75
[2018-02-27 06:19] VITALS: BP 148/89
[2018-02-27 08:28] VITALS: BP 129/65
[2018-02-27] MEDS: SERTRALINE HCL 100 MG TABLET PO SCH (09:03)
[2018-02-27] MEDS: QUEtiapine FUMARATE 200 MG TABLET PO SCH ×2 (09:03→20:35)
[2018-02-27] MEDS: AmLODIPine BESYLATE 5 MG TABLET PO SCH (09:03)
[2018-02-27] MEDS: LORazepam 2 MG TABLET PO PRN (14:38)
[2018-02-27 16:08] VITALS: BP 130/69
[2018-02-27] MEDS: ZOLPIDEM TARTRATE 10 MG TABLET PO PRN (20:35)
[2018-02-28 00:24] VITALS: BP 149/87
[2018-02-28] MEDS: LORazepam 2 MG TABLET PO PRN ×3 (00:28→13:33)
[2018-02-28 08:00] VITALS: BP 143/95
[2018-02-28] MEDS: QUEtiapine FUMARATE 200 MG TABLET PO SCH ×2 (08:02→20:51)
[2018-02-28] MEDS: AmLODIPine BESYLATE 5 MG TABLET PO SCH (08:02)
[2018-02-28] MEDS: SERTRALINE HCL 100 MG TABLET PO SCH (08:02)
[2018-02-28] MEDS: GABAPENTIN 100 MG CAPSULE PO SCH ×2 (08:42→20:51)
[2018-02-28 09:30] VITALS: BP 134/68
[2018-02-28] MEDS ORDERED: SERT100T12 PO (11:28)
[2018-02-28] MEDS ORDERED: GABA-529 PO (11:29)
[2018-02-28] MEDS ORDERED: AMLO-511 PO (11:31)
[2018-02-28 16:07] VITALS: BP 149/76
[2018-02-28] MEDS: QUEtiapine FUMARATE 100 MG TABLET PO PRN (16:46)
[2018-03-01 00:40] VITALS: BP 144/90
[2018-03-01 08:19] VITALS: BP 139/79
[2018-03-01] MEDS: QUEtiapine FUMARATE 200 MG TABLET PO SCH ×2 (08:20→20:18)
[2018-03-01] MEDS: GABAPENTIN 100 MG CAPSULE PO SCH ×2 (08:20→20:18)
[2018-03-01] MEDS: SERTRALINE HCL 100 MG TABLET PO SCH (08:20)
[2018-03-01] MEDS: AmLODIPine BESYLATE 5 MG TABLET PO SCH (08:20)
[2018-03-01] MEDS: HydrOXYzine PAMOATE 25 MG CAPSULE PO PRN (14:38)
[2018-03-01 16:10] VITALS: BP 129/88
[2018-03-01] MEDS: LORazepam 2 MG TABLET PO PRN (18:27)
[2018-03-02 06:23] VITALS: BP 140/85
[2018-03-02] MEDS: QUEtiapine FUMARATE 200 MG TABLET PO SCH ×2 (08:17→20:37)
[2018-03-02] MEDS: SERTRALINE HCL 100 MG TABLET PO SCH (08:17)
[2018-03-02] MEDS: AmLODIPine BESYLATE 5 MG TABLET PO SCH (08:17)
[2018-03-02] MEDS: GABAPENTIN 100 MG CAPSULE PO SCH ×2 (08:17→20:38)
[2018-03-02 08:34] VITALS: BP 136/76
[2018-03-02] MEDS: HydrOXYzine PAMOATE 25 MG CAPSULE PO PRN (13:56)
[2018-03-02 16:09] VITALS: BP 139/85
[2018-03-02] MEDS: ZOLPIDEM TARTRATE 10 MG TABLET PO PRN (20:38)
[2018-03-03 03:11] VITALS: BP 134/87
[2018-03-03] MEDS: AmLODIPine BESYLATE 5 MG TABLET PO SCH (08:04)
[2018-03-03] MEDS: SERTRALINE HCL 100 MG TABLET PO SCH (08:04)
[2018-03-03] MEDS: GABAPENTIN 100 MG CAPSULE PO SCH ×2 (08:04→20:41)
[2018-03-03] MEDS: QUEtiapine FUMARATE 200 MG TABLET PO SCH ×2 (08:04→20:41)
[2018-03-03 08:24] VITALS: BP 141/83
[2018-03-03] MEDS: HydrOXYzine PAMOATE 25 MG CAPSULE PO PRN (11:08)
[2018-03-03 16:11] VITALS: BP 138/84
[2018-03-03] MEDS: ZOLPIDEM TARTRATE 10 MG TABLET PO PRN (21:16)
[2018-03-04 02:10] VITALS: BP 137/81
[2018-03-04] MEDS: SERTRALINE HCL 100 MG TABLET PO SCH (08:13)
[2018-03-04] MEDS: GABAPENTIN 100 MG CAPSULE PO SCH (08:13)
[2018-03-04] MEDS: AmLODIPine BESYLATE 5 MG TABLET PO SCH (08:13)
[2018-03-04] MEDS: QUEtiapine FUMARATE 200 MG TABLET PO SCH (08:13)
[2018-03-04 08:28] VITALS: BP 136/89
[2018-03-04 16:15] VITALS: BP 138/80
== END 2018-03-04 15:50 | disposition home or self-care (01) | DRG 885 ==
LOC: EMS 09:53 → B2X 16:00
DX: F25.1 Schizoaffective disorder, depressive type (principal); F14.20 Cocaine dependence, uncomplicated; R45.851 Suicidal ideations; F17.210 Nicotine dependence, cigarettes, uncomplicated; F12.10 Cannabis abuse, uncomplicated; E87.6 Hypokalemia; B18.2 Chronic viral hepatitis C; I10 Essential (primary) hypertension; M19.90 Unspecified osteoarthritis, unspecified site; F19.10 Other psychoactive substance abuse, uncomplicated; Z59.0 Homelessness; Z79.899 Other long term (current) drug therapy; Z88.8 Allergy status to other drugs, medicaments and biological substances; Z71.51 Drug abuse counseling and surveillance of drug abuser; Z71.6 Tobacco abuse counseling
CPT/HCPCS: 80074; 83036; 84132; 84443; 87081; 99285; 99406; G0480

== ENCOUNTER 2018-04-01 17:51 | Emergency (ER) | payer MEDICARE, MEDICAID ==
[~2018-04-01] VITALS: Ht 157.5 cm; Wt 84.1 kg
[~2018-04-01 17:51] MED LIST changes: +AMLO-511 PO; +GABA-529 PO
[2018-04-01 17:59] VITALS: BP 131/61
== END 2018-04-01 20:50 | disposition left against medical advice (07) ==
LOC: EMS 17:52
DX: H57.12 Ocular pain, left eye (principal); H53.8 Other visual disturbances; I11.9 Hypertensive heart disease without heart failure; F11.10 Opioid abuse, uncomplicated; F17.210 Nicotine dependence, cigarettes, uncomplicated; F14.90 Cocaine use, unspecified, uncomplicated; Z53.21 Procedure and treatment not carried out due to patient leaving prior to being seen by health care provider

== ENCOUNTER 2018-04-02 07:46 | Inpatient (IN) | payer MEDICARE, MEDICAID ==
[~2018-04-02] VITALS: Ht 157.5 cm; Wt 81.1 kg
[~2018-04-02 07:46] MED LIST changes: -SERT100T12 PO
[2018-04-02 10:10] LABS: BASOPHILS % (AUTO) 0.8 % (0.0-2.0); EOSINOPHILS % (AUTO) 1.7 % (1.0-6.0); HEMATOCRIT 38.1 % (36-46); HEMOGLOBIN 12.2 g/dL (12.0-16.0); LYMPHOCYTES # (AUTO) 3.7 K/uL (1.0-4.8); LYMPHOCYTES % (AUTO) 41.6 % (22.0-44.0); MEAN CORPUSCULAR HGB CONC 32.2 G/dL (31.0-37.0); MEAN CORPUSCULAR VOLUME 81 fL (80-100); MONOCYTES # (AUTO) 0.6 K/uL (0.1-1.0); MONOCYTES % (AUTO) 6.7 % (2.0-9.0); NEUTROPHILS # (AUTO) 4.4 K/uL (1.8-7.7); NEUTROPHILS % (AUTO) 49.2 % (40.0-70.0); PLATELET COUNT (AUTO) 237 K/uL (150-450); RED CELL DISTRIBUTION WIDTH 15.5 % (11.5-14.5)
[2018-04-02] MEDS ORDERED: KETOROLAC TROMETHAMINE 30 MG/ML VIAL IM ONE (10:15)
[2018-04-02 10:19] LABS: ANION GAP 10 mmol/L (8-16); CALCIUM, TOTAL 8.7 mg/dL (8.8-10.5); CARBON DIOXIDE 29 mmol/L (22-29); CHLORIDE 103 mmol/L (98-107); CREATININE 0.91 mg/dL (0.60-1.30); GLOMERULAR FILTR. RATE CALC > 60 mL/min (>60); GLUCOSE,RANDOM 96 mg/dL (70-110); POTASSIUM 3.3 mmol/L (3.5-5.1); SODIUM SERUM 142 mmol/L (136-145); UREA NITROGEN, BLOOD 17 mg/dL (7-18)
[2018-04-02 10:25] LABS: APPEARANCE,URINE CLOUDY (CLEAR); BILIRUBIN,URINE NEGATIVE (NEGATIVE); GLUCOSE, URINE (UA) NEGATIVE (NEGATIVE); KETONES,URINE NEGATIVE (NEGATIVE); LEUKOCYTE ESTERASE ,URINE SMALL (NEGATIVE); NITRATE,URINE NEGATIVE (NEGATIVE); OCCULT BLOOD,URINE NEGATIVE (NEGATIVE); PH,URINE 7.5 (5.0-8.0); PROTEIN,URINE TRACE (NEGATIVE)
[2018-04-02 10:26] LABS: ALANINE AMINOTRANSFERASE 30 U/L (12-78); ALBUMIN 3.3 g/dL (3.4-5.0); ALKALINE PHOSPHATASE 82 U/L (46-116); ASPARTATE AMINOTRANSFERASE 36 U/L (15-37); BILIRUBIN,TOTAL 0.3 mg/dL (0.1-1.0); LIPASE 142 U/L (73-393); TOTAL PROTEIN, SERUM 7.4 g/dL (6.4-8.2)
[2018-04-02 10:29] LABS: AMPHET/METH SCREEN,URINE POSITIVE (NEGATIVE); BARBITURATE SCREEN, URINE NEGATIVE (NEGATIVE); BENZODIAZEPINES SCREEN,URINE NEGATIVE (NEGATIVE); CANNABINOID SCREEN,URINE NEGATIVE (NEGATIVE); COCAINE SCREEN,URINE POSITIVE (NEGATIVE); METHADONE SCREEN, URINE NEGATIVE (NEGATIVE); OPIATE SCREEN,URINE NEGATIVE (NEGATIVE)
[2018-04-02 10:30] LABS: PHENCYCLIDINE SCREEN,URINE NEGATIVE (NEGATIVE)
[2018-04-02 11:03] LABS: BACTERIA,URINE None Seen /HPF (None Seen); RBC,URINE None Seen /HPF (0-2); RENAL EPITHELIAL CELLS,URINE Few /LPF (None Seen); SQUAMOUS EPITHELIAL CELL,UR Few /LPF (None Seen)
[2018-04-02] MEDS ORDERED: ASPIRIN 81 MG CHEWABLE TABLET PO ONE (11:15)
[2018-04-02] MEDS ORDERED: NITROGLYCERIN 2% (1 GM=INCH) PACKET TP ONE (11:15)
[2018-04-02] MEDS ORDERED: ACETAMINOPHEN 325 MG TABLET PO PRN ×2 (11:30→16:30)
[2018-04-02] MEDS ORDERED: ONDANSETRON HCL 4 MG/2 ML VIAL IVP PRN ×2 (11:30→16:30)
[2018-04-02] MEDS ORDERED: LORazepam 2 MG/ML VIAL IVP ONE (11:45)
[2018-04-02 14:42] VITALS: BP 158/85
[2018-04-02] MEDS ORDERED: MAGNESIUM HYDROXIDE SUSPENSION 30 ML UDCUP PO PRN (16:30)
[2018-04-02] MEDS ORDERED: IPRATROPIUM BROMIDE 0.5 MG/2.5 ML NEB SOLUTION NEB PRN (16:30)
[2018-04-02] MEDS ORDERED: HYDROCODONE/ACETAMINOPHEN 5-325 MG TABLET PO PRN (16:30)
[2018-04-02] MEDS ORDERED: ZOLPIDEM TARTRATE 10 MG TABLET PO PRN (16:30)
[2018-04-02] MEDS ORDERED: AmLODIPine BESYLATE 5 MG TABLET PO SCH (16:30)
[2018-04-02] MEDS: ALPRAZolam 0.5 MG TABLET PO PRN (17:46)
[2018-04-02] MEDS: NITROGLYCERIN 2% (1 GM=INCH) PACKET TP SCH ×2 (17:51→23:16)
[2018-04-02 18:39] VITALS: BP 147/76
[2018-04-02 19:50] VITALS: BP 151/89
[2018-04-02] MEDS: DOCUSATE SODIUM 100 MG CAPSULE PO SCH (20:12)
[2018-04-02] MEDS: QUEtiapine FUMARATE 200 MG TABLET PO SCH (20:12)
[2018-04-02] MEDS: GABAPENTIN 100 MG CAPSULE PO SCH (20:12)
[2018-04-02] MEDS: MORPHINE SULFATE 2 MG/ML SYRINGE IVP PRN (21:14)
[2018-04-02] MEDS ORDERED: POTASSIUM CHLORIDE 20 MEQ ER TABLET PO PRN (21:30)
[2018-04-02] MEDS ORDERED: POTASSIUM CHL 10 MEQ/WATER 50 ML IV PRN (21:30)
[2018-04-02] MEDS: CloNIDine HCL 0.2 MG TABLET PO SCH (21:51)
[2018-04-03 00:01] VITALS: BP 140/78
[2018-04-03 05:05] VITALS: BP 152/83
[2018-04-03] MEDS: NITROGLYCERIN 2% (1 GM=INCH) PACKET TP SCH ×3 (05:12→18:26)
[2018-04-03] MEDS: ALPRAZolam 0.5 MG TABLET PO PRN ×2 (05:14→18:26)
[2018-04-03 06:18] LABS: CHOL/HDL RATIO 3.2 (3.9-5.7)
[2018-04-03 07:44] VITALS: BP 139/79
[2018-04-03] MEDS: CloNIDine HCL 0.2 MG TABLET PO SCH ×2 (08:41→20:24)
[2018-04-03] MEDS: DOCUSATE SODIUM 100 MG CAPSULE PO SCH ×2 (08:42→20:24)
[2018-04-03] MEDS: PANTOPRAZOLE SODIUM 40 MG/VIAL IVP SCH (08:42)
[2018-04-03] MEDS: QUEtiapine FUMARATE 200 MG TABLET PO SCH ×2 (08:42→20:24)
[2018-04-03] MEDS: GABAPENTIN 100 MG CAPSULE PO SCH ×2 (08:42→20:24)
[2018-04-03] MEDS: ASPIRIN 81 MG CHEWABLE TABLET PO SCH (08:42)
[2018-04-03 11:22] VITALS: BP 137/74
[2018-04-03 16:01] VITALS: BP 127/83
[2018-04-03 19:31] VITALS: BP 139/94
[2018-04-04] MEDS: NITROGLYCERIN 2% (1 GM=INCH) PACKET TP SCH ×5 (00:10→23:39)
[2018-04-04 00:45] VITALS: BP 125/72
[2018-04-04] MEDS: ALPRAZolam 0.5 MG TABLET PO PRN ×2 (03:37→15:42)
[2018-04-04 04:31] VITALS: BP 153/91
[2018-04-04 07:12] VITALS: BP 159/88
[2018-04-04] MEDS: ASPIRIN 81 MG CHEWABLE TABLET PO SCH (09:24)
[2018-04-04] MEDS: MORPHINE SULFATE 2 MG/ML SYRINGE IVP PRN (09:24)
[2018-04-04] MEDS: DOCUSATE SODIUM 100 MG CAPSULE PO SCH ×2 (09:24→20:10)
[2018-04-04] MEDS: GABAPENTIN 100 MG CAPSULE PO SCH ×2 (09:25→20:10)
[2018-04-04] MEDS: QUEtiapine FUMARATE 200 MG TABLET PO SCH ×2 (09:25→20:10)
[2018-04-04] MEDS: CloNIDine HCL 0.2 MG TABLET PO SCH ×2 (09:25→20:10)
[2018-04-04] MEDS: PANTOPRAZOLE SODIUM 40 MG/VIAL IVP SCH (09:25)
[2018-04-04 10:55] VITALS: BP 140/79
[2018-04-04 15:45] VITALS: BP 127/78
[2018-04-04 19:44] VITALS: BP 129/56
[2018-04-05 00:18] VITALS: BP 117/71
[2018-04-05] MEDS: ALPRAZolam 0.5 MG TABLET PO PRN (04:17)
[2018-04-05 04:19] VITALS: BP 151/88
[2018-04-05] MEDS: NITROGLYCERIN 2% (1 GM=INCH) PACKET TP SCH ×2 (06:17→11:58)
[2018-04-05] MEDS: MORPHINE SULFATE 2 MG/ML SYRINGE IVP PRN ×2 (07:40→12:02)
[2018-04-05 08:07] VITALS: BP 136/95
[2018-04-05] MEDS: CloNIDine HCL 0.2 MG TABLET PO SCH (08:54)
[2018-04-05] MEDS: ASPIRIN 81 MG CHEWABLE TABLET PO SCH (08:54)
[2018-04-05] MEDS: QUEtiapine FUMARATE 200 MG TABLET PO SCH (08:54)
[2018-04-05] MEDS: PANTOPRAZOLE SODIUM 40 MG/VIAL IVP SCH (08:54)
[2018-04-05] MEDS: DOCUSATE SODIUM 100 MG CAPSULE PO SCH (08:55)
[2018-04-05] MEDS: GABAPENTIN 100 MG CAPSULE PO SCH (08:55)
[2018-04-05 11:39] VITALS: BP 130/77
[2018-04-05] MEDS ORDERED: ALPR0.5T8 PO (13:15)
[2018-04-05] MEDS ORDERED: HYDR-4061 PO (13:30)
[2018-04-05] MEDS ORDERED: ASPI-1182 PO (13:31)
[2018-04-05] MEDS ORDERED: CLON.2 PO (13:31)
[2018-04-05] MEDS ORDERED: QUET200T PO (13:32)
== END 2018-04-05 15:30 | disposition home or self-care (01) | DRG 313 ==
LOC: EMS 07:49 → 5S 12:28
PROVIDERS: ADMIT Hospitalist; ATTEND Hospitalist
DX: R07.9 Chest pain, unspecified (principal); F19.10 Other psychoactive substance abuse, uncomplicated; F32.9 Major depressive disorder, single episode, unspecified; I10 Essential (primary) hypertension; F20.9 Schizophrenia, unspecified; M19.90 Unspecified osteoarthritis, unspecified site; F41.9 Anxiety disorder, unspecified; F17.210 Nicotine dependence, cigarettes, uncomplicated; H15.102 Unspecified episcleritis, left eye; F15.10 Other stimulant abuse, uncomplicated; F14.10 Cocaine abuse, uncomplicated; Z88.8 Allergy status to other drugs, medicaments and biological substances; Z59.0 Homelessness
CPT/HCPCS: 84132; 93005; 93306; 96372; 96374; 99285; C9113; G0480; J1885; J2060; J2270

== ENCOUNTER → 2018-10-22 | Outpatient (CLI) | payer MEDICARE, MEDICAID ==
[~2018-10-22] VITALS: Ht 154.9 cm; Wt 74.5 kg
[~2018-10-22] MED LIST changes: +ALPR0.5T8 PO; -AMLO-511 PO; +ASPI-1182 PO; +CLON.2 PO; +HYDR-4061 PO
[2018-10-22 11:35] VITALS: BP 120/72
== END | disposition home or self-care (01) ==
LOC: SRCNTR 11:17
PROVIDERS: ATTEND Hospitalist
DX: I10 Essential (primary) hypertension (principal); J44.9 Chronic obstructive pulmonary disease, unspecified
CPT/HCPCS: G0463

== ENCOUNTER → 2018-12-25 | Outpatient (CLI) | payer MEDICARE, MEDICAID ==
[~2018-12-25] VITALS: Ht 154.9 cm; Wt 77.5 kg
[2018-12-25 12:01] VITALS: BP 155/75
== END | disposition home or self-care (01) ==
LOC: SRCNTR 11:58
PROVIDERS: ATTEND Hospitalist
DX: I10 Essential (primary) hypertension (principal); J44.9 Chronic obstructive pulmonary disease, unspecified
CPT/HCPCS: G0463

== ENCOUNTER 2019-07-21 15:25 | Inpatient (IN) | payer MEDICARE, MEDICAID ==
[~2019-07-21] VITALS: Ht 157.5 cm; Wt 70.5 kg
[2019-07-21] MEDS ORDERED: ASPIRIN 325 MG TABLET PO ONE (16:00)
[2019-07-21 16:22] LABS: BASOPHILS % (AUTO) 0.5 % (0.0-2.0); EOSINOPHILS % (AUTO) 0.4 % (1.0-6.0); HEMATOCRIT 45.3 % (36-46); LYMPHOCYTES # (AUTO) 4.1 K/uL (1.0-4.8); LYMPHOCYTES % (AUTO) 37.6 % (22.0-44.0); MEAN CORPUSCULAR HEMOGLOBIN 27.6 pg (26.0-34.0); MEAN CORPUSCULAR HGB CONC 33.1 G/dL (31.0-37.0); MEAN CORPUSCULAR VOLUME 83 fL (80-100); MONOCYTES # (AUTO) 0.7 K/uL (0.1-1.0); MONOCYTES % (AUTO) 6.9 % (2.0-9.0); NEUTROPHILS # (AUTO) 5.9 K/uL (1.8-7.7); NEUTROPHILS % (AUTO) 54.6 % (40.0-70.0); PLATELET COUNT (AUTO) 271 K/uL (150-450); RED BLOOD CELL COUNT(AUTO) 5.44 MIL/uL (4.00-5.20); RED CELL DISTRIBUTION WIDTH 14.3 % (11.5-14.5)
[2019-07-21 16:31] LABS: ANION GAP 7 mmol/L (8-16); CALCIUM, TOTAL 9.3 mg/dL (8.8-10.5); CARBON DIOXIDE 29 mmol/L (22-29); CHLORIDE 103 mmol/L (98-107); CREATININE 0.84 mg/dL (0.60-1.30); GLOMERULAR FILTR. RATE CALC > 60 mL/min (>60); GLUCOSE,RANDOM 96 mg/dL (70-110); POTASSIUM 3.1 mmol/L (3.5-5.1); SODIUM SERUM 139 mmol/L (136-145); UREA NITROGEN, BLOOD 20 mg/dL (7-18)
[2019-07-21 16:42] LABS: ALANINE AMINOTRANSFERASE 27 U/L (12-78); ALKALINE PHOSPHATASE 101 U/L (46-116); ASPARTATE AMINOTRANSFERASE 27 U/L (15-37); BILIRUBIN,TOTAL 0.3 mg/dL (0.1-1.0); HCG,QUANTITATIVE 5 mIU/mL (0-6); TOTAL PROTEIN, SERUM 8.5 g/dL (6.4-8.2)
[2019-07-21] MEDS ORDERED: POTASSIUM CHLORIDE 20 MEQ ER TABLET PO ONE (16:45)
[2019-07-21 16:52] LABS: B-TYPE NATRIURETIC PEPTIDE 35 pg/mL (0-100)
[2019-07-21 17:45] LABS: CREATINE KINASE, TOTAL ONLY 81 U/L (26-192)
[2019-07-21] MEDS ORDERED: ACETAMINOPHEN 325 MG TABLET PO PRN ×2 (17:45→22:00)
[2019-07-21] MEDS ORDERED: ONDANSETRON HCL 4 MG/2 ML VIAL IVP PRN ×2 (17:45→22:00)
[2019-07-21] MEDS ORDERED: 0.9% SODIUM CHLORIDE 10 ML SYRINGE IVP PRN (17:45)
[2019-07-21] MEDS ORDERED: HEPARIN SODIUM 25000 UNITS/D5W 250 ML IV PRN ×2 (18:00→22:15)
[2019-07-21] MEDS ORDERED: HEPARIN SODIUM,PORCINE 5,000 UNITS/ML VIAL IVP ONE ×2 (18:15)
[2019-07-21] MEDS ORDERED: HEPARIN SODIUM,PORCINE 5,000 UNITS/ML VIAL IVP PRN ×4 (18:15→22:15)
[2019-07-21] MEDS ORDERED: ACETAMINOPHEN 325 MG TABLET PO ONE (18:30)
[2019-07-21 18:31] LABS: APPEARANCE,URINE CLOUDY (CLEAR); BILIRUBIN,URINE NEGATIVE (NEGATIVE); GLUCOSE, URINE (UA) NEGATIVE (NEGATIVE); KETONES,URINE NEGATIVE (NEGATIVE); LEUKOCYTE ESTERASE ,URINE MODERATE (NEGATIVE); NITRATE,URINE NEGATIVE (NEGATIVE); OCCULT BLOOD,URINE NEGATIVE (NEGATIVE); PROTEIN,URINE POS 1+ (NEGATIVE)
[2019-07-21 18:35] LABS: BACTERIA,URINE Few /HPF (None Seen); RBC,URINE 0-2 /HPF (0-2); SQUAMOUS EPITHELIAL CELL,UR Few /LPF (None Seen)
[2019-07-21 18:40] LABS: INR 1.1 (0.9-1.1); PROTHROMBIN TIME 10.7 SEC (9.4-11.6)
[2019-07-21] MEDS ORDERED: LABETALOL HCL 5 MG/ML 20 ML VIAL IVP ONE (19:30)
[2019-07-21 21:42] VITALS: BP 203/109
[2019-07-21] MEDS ORDERED: ZOLPIDEM TARTRATE 5 MG TABLET PO PRN (22:00)
[2019-07-21] MEDS ORDERED: HydrALAZINE HCL 20 MG/ML VIAL IVP PRN (22:00)
[2019-07-21] MEDS ORDERED: MAGNESIUM HYDROXIDE SUSPENSION 30 ML UDCUP PO PRN (22:00)
[2019-07-21] MEDS ORDERED: BISACODYL 10 MG RECTAL RECTAL SUPPOSITORY PR PRN (22:00)
[2019-07-21] MEDS ORDERED: MORPHINE SULFATE 2 MG/ML SYRINGE IVP PRN (22:00)
[2019-07-21] MEDS: CloNIDine HCL 0.2 MG TABLET PO SCH (22:49)
[2019-07-21] MEDS: HYDROCODONE/ACETAMINOPHEN 5-325 MG TABLET PO PRN (22:50)
[2019-07-21] MEDS: NITROGLYCERIN 2% (1 GM=INCH) PACKET TP SCH (23:02)
[2019-07-21 23:47] VITALS: BP 170/94
[2019-07-22] MEDS ORDERED: HEPARIN SODIUM,PORCINE 5,000 UNITS/ML VIAL SQ SCH
[2019-07-22 04:30] VITALS: BP 147/92
[2019-07-22 06:38] LABS: CHOL/HDL RATIO 2.3 (3.9-5.7)
[2019-07-22 08:19] VITALS: BP 161/104
[2019-07-22] MEDS ORDERED: ASPIRIN 81 MG CHEWABLE TABLET PO SCH (09:00)
[2019-07-22] MEDS ORDERED: CARVEDILOL 6.25 MG TABLET PO SCH (09:00)
[2019-07-22] MEDS: DOCUSATE SODIUM 100 MG CAPSULE PO SCH ×2 (09:00→20:16)
[2019-07-22] MEDS: GABAPENTIN 100 MG CAPSULE PO SCH ×2 (09:50→20:16)
[2019-07-22] MEDS: PANTOPRAZOLE SODIUM 40 MG DR TABLET PO SCH (09:50)
[2019-07-22] MEDS: NITROGLYCERIN 2% (1 GM=INCH) PACKET TP SCH ×3 (09:51→23:38)
[2019-07-22] MEDS: ASPIRIN 81 MG EC TABLET PO SCH (09:51)
[2019-07-22] MEDS: HydrALAZINE HCL 25 MG TABLET PO SCH (10:00)
[2019-07-22] MEDS: LORazepam 1 MG TABLET PO PRN (11:08)
[2019-07-22] MEDS: CloNIDine HCL 0.2 MG TABLET PO SCH ×2 (11:09→20:16)
[2019-07-22 11:11] VITALS: BP 166/92
[2019-07-22 15:26] VITALS: BP 145/88
[2019-07-22 19:40] VITALS: BP 155/84
[2019-07-22] MEDS: HYDROCODONE/ACETAMINOPHEN 5-325 MG TABLET PO PRN (20:16)
[2019-07-22] MEDS: METOPROLOL TARTRATE 50 MG TABLET PO SCH (20:16)
[2019-07-22] MEDS ORDERED: QUEtiapine FUMARATE 200 MG TABLET PO SCH (21:00)
[2019-07-22 23:43] VITALS: BP 147/79
[2019-07-23 04:30] VITALS: BP 104/59
[2019-07-23] MEDS: HYDROCODONE/ACETAMINOPHEN 5-325 MG TABLET PO PRN (04:45)
[2019-07-23 06:10] LABS: BASOPHILS % (AUTO) 0.4 % (0.0-2.0); EOSINOPHILS % (AUTO) 0.9 % (1.0-6.0); HEMATOCRIT 40.3 % (36-46); HEMOGLOBIN 13.2 g/dL (12.0-16.0); LYMPHOCYTES # (AUTO) 4.6 K/uL (1.0-4.8); LYMPHOCYTES % (AUTO) 42.3 % (22.0-44.0); MEAN CORPUSCULAR HEMOGLOBIN 27.3 pg (26.0-34.0); MEAN CORPUSCULAR HGB CONC 32.7 G/dL (31.0-37.0); MEAN CORPUSCULAR VOLUME 83 fL (80-100); MONOCYTES # (AUTO) 0.7 K/uL (0.1-1.0); MONOCYTES % (AUTO) 6.1 % (2.0-9.0); NEUTROPHILS # (AUTO) 5.5 K/uL (1.8-7.7); NEUTROPHILS % (AUTO) 50.3 % (40.0-70.0); PLATELET COUNT (AUTO) 242 K/uL (150-450); RED BLOOD CELL COUNT(AUTO) 4.84 MIL/uL (4.00-5.20); RED CELL DISTRIBUTION WIDTH 14.3 % (11.5-14.5)
[2019-07-23 06:31] LABS: B-TYPE NATRIURETIC PEPTIDE 24 pg/mL (0-100)
[2019-07-23 06:42] LABS: ANION GAP 8 mmol/L (8-16); CALCIUM, TOTAL 8.5 mg/dL (8.8-10.5); CARBON DIOXIDE 27 mmol/L (22-29); CHLORIDE 105 mmol/L (98-107); CREATINE KINASE, TOTAL ONLY 78 U/L (26-192); CREATININE 0.92 mg/dL (0.60-1.30); GLOMERULAR FILTR. RATE CALC > 60 mL/min (>60); GLUCOSE,RANDOM 97 mg/dL (70-110); POTASSIUM 4.1 mmol/L (3.5-5.1); SODIUM SERUM 140 mmol/L (136-145); UREA NITROGEN, BLOOD 19 mg/dL (7-18)
[2019-07-23] MEDS ORDERED: MAGNESIUM SULFATE 2 GM/WATER 50 ML IV ONE (07:15)
[2019-07-23 07:43] VITALS: BP 113/58
[2019-07-23] MEDS ORDERED: MAGNESIUM SULFATE 3 GM in DEXTROSE 5%-WATER 100 ML IV ONE (07:45)
[2019-07-23] MEDS: CloNIDine HCL 0.2 MG TABLET PO SCH (07:59)
[2019-07-23] MEDS: METOPROLOL TARTRATE 50 MG TABLET PO SCH (08:01)
[2019-07-23] MEDS: GABAPENTIN 100 MG CAPSULE PO SCH (08:01)
[2019-07-23] MEDS: PANTOPRAZOLE SODIUM 40 MG DR TABLET PO SCH (08:01)
[2019-07-23] MEDS: HydrALAZINE HCL 25 MG TABLET PO SCH (08:03)
[2019-07-23] MEDS: DOCUSATE SODIUM 100 MG CAPSULE PO SCH (08:03)
[2019-07-23] MEDS ORDERED: SODIUM CHLORIDE 0.9% 100 ML ONE (09:00)
[2019-07-23] MEDS ORDERED: IOVERSOL 350 MG/ML 150 ML VIAL ONE (09:01)
[2019-07-23 11:31] VITALS: BP 105/49
[2019-07-23] MEDS: LORazepam 1 MG TABLET PO PRN (13:27)
[2019-07-23] MEDS ORDERED: NITROGLYCERIN 400 MCG/SUBLINGUAL SPRAY 4.9 GM BOTTLE SL ONE (14:19)
[2019-07-23] MEDS ORDERED: METOPROLOL TARTRATE 5 MG/5 ML VIAL ONE (14:20)
[2019-07-23] MEDS: NITROGLYCERIN 2% (1 GM=INCH) PACKET TP SCH ×2 (16:00→16:43)
[2019-07-23] MEDS: ASPIRIN 81 MG EC TABLET PO SCH (16:43)
[2019-07-23 17:07] VITALS: BP 122/57
[2019-07-23] MEDS ORDERED: ATOR10TA84 PO (18:05)
[2019-07-23] MEDS ORDERED: METO25 PO (18:07)
[2019-07-23] MEDS ORDERED: ISOS30TA6 PO (18:08)
[2019-07-24] MEDS ORDERED: ATORVASTATIN CALCIUM 10 MG TABLET PO SCH (09:00)
== END 2019-07-23 18:30 | disposition home or self-care (01) | DRG 282 ==
LOC: EMS 15:25 → 5S 17:57
PROVIDERS: ADMIT Internal Medicine; ATTEND Internal Medicine
DX: I21.4 Non-ST elevation (NSTEMI) myocardial infarction (principal); I16.0 Hypertensive urgency; E87.6 Hypokalemia; F41.9 Anxiety disorder, unspecified; F20.9 Schizophrenia, unspecified; F32.9 Major depressive disorder, single episode, unspecified; I10 Essential (primary) hypertension; I25.10 Atherosclerotic heart disease of native coronary artery without angina pectoris; E78.5 Hyperlipidemia, unspecified; Z87.891 Personal history of nicotine dependence; Z88.8 Allergy status to other drugs, medicaments and biological substances
CPT/HCPCS: 75574; 83735; 87086; 93005; 93306; J0360; J1644; J2270; J3475; J3490; J7050; J7060

== ENCOUNTER 2019-08-18 15:39 | Emergency (ER) | payer MEDICARE, MEDICAID ==
[~2019-08-18 15:39] MED LIST changes: +ATOR10TA84 PO; +ISOS30TA6 PO; +METO25 PO
[2019-08-18] MEDS ORDERED: CHOL100018 PO (16:49)
[2019-08-18 17:00] LABS: EOSINOPHILS % (AUTO) 0.6 % (1.0-6.0); HEMOGLOBIN 13.3 g/dL (12.0-16.0); LYMPHOCYTES # (AUTO) 4.5 K/uL (1.0-4.8); LYMPHOCYTES % (AUTO) 44.7 % (22.0-44.0); MEAN CORPUSCULAR HEMOGLOBIN 27.6 pg (26.0-34.0); MEAN CORPUSCULAR HGB CONC 32.4 G/dL (31.0-37.0); MEAN CORPUSCULAR VOLUME 85 fL (80-100); MONOCYTES # (AUTO) 0.5 K/uL (0.1-1.0); MONOCYTES % (AUTO) 4.7 % (2.0-9.0); NEUTROPHILS # (AUTO) 4.9 K/uL (1.8-7.7); PLATELET COUNT (AUTO) 321 K/uL (150-450); RED BLOOD CELL COUNT(AUTO) 4.81 MIL/uL (4.00-5.20); RED CELL DISTRIBUTION WIDTH 14.6 % (11.5-14.5)
[2019-08-18 17:10] LABS: ANION GAP 6 mmol/L (8-16); CARBON DIOXIDE 32 mmol/L (22-29); CHLORIDE 104 mmol/L (98-107); CREATININE 0.93 mg/dL (0.60-1.30); GLOMERULAR FILTR. RATE CALC > 60 mL/min (>60); GLUCOSE,RANDOM 79 mg/dL (70-110); POTASSIUM 3.8 mmol/L (3.5-5.1); SODIUM SERUM 142 mmol/L (136-145); UREA NITROGEN, BLOOD 12 mg/dL (7-18)
[2019-08-18 17:15] LABS: ALANINE AMINOTRANSFERASE 35 U/L (12-78); ALBUMIN 3.5 g/dL (3.4-5.0); ALKALINE PHOSPHATASE 86 U/L (46-116); ASPARTATE AMINOTRANSFERASE 38 U/L (15-37); BILIRUBIN,TOTAL 0.2 mg/dL (0.1-1.0); TOTAL PROTEIN, SERUM 8.3 g/dL (6.4-8.2)
[2019-08-18 18:36] LABS: AMPHET/METH SCREEN,URINE POSITIVE (NEGATIVE); BARBITURATE SCREEN, URINE NEGATIVE (NEGATIVE); BENZODIAZEPINES SCREEN,URINE POSITIVE (NEGATIVE); CANNABINOID SCREEN,URINE POSITIVE (NEGATIVE); COCAINE SCREEN,URINE POSITIVE (NEGATIVE); METHADONE SCREEN, URINE NEGATIVE (NEGATIVE); OPIATE SCREEN,URINE NEGATIVE (NEGATIVE)
[2019-08-18 18:38] LABS: PHENCYCLIDINE SCREEN,URINE NEGATIVE (NEGATIVE)
== END 2019-08-18 18:10 | disposition home or self-care (01) ==
LOC: EMS 15:41
DX: F20.9 Schizophrenia, unspecified (principal); F41.9 Anxiety disorder, unspecified; F31.9 Bipolar disorder, unspecified; I11.9 Hypertensive heart disease without heart failure; F14.90 Cocaine use, unspecified, uncomplicated; F11.90 Opioid use, unspecified, uncomplicated; F19.90 Other psychoactive substance use, unspecified, uncomplicated; Z59.0 Homelessness; Z88.8 Allergy status to other drugs, medicaments and biological substances; Z79.82 Long term (current) use of aspirin
CPT/HCPCS: 36415; 80053; 80307; 85025; 99285; G0480

== ENCOUNTER → 2019-10-29 | Outpatient (CLI) | payer MEDICARE, MEDICAID ==
[~2019-10-29] MED LIST changes: +ASPI-1111 PO; -ASPI-1182 PO; +CARV6 PO; +CHOL100018 PO; -CLON.2 PO; +CLON0.2T2 PO; +CLOP75TA3 PO; +MELA5TAB3 PO
[2019-10-29 12:28] VITALS: BP 166/101
== END | disposition home or self-care (01) ==
LOC: SRCNTR 12:26
PROVIDERS: ATTEND Hospitalist
DX: I10 Essential (primary) hypertension (principal); J44.9 Chronic obstructive pulmonary disease, unspecified; F41.1 Generalized anxiety disorder; F32.9 Major depressive disorder, single episode, unspecified
CPT/HCPCS: G0463

== ENCOUNTER 2019-11-02 08:39 | Emergency (ER) | payer MEDICARE, MEDICAID ==
[~2019-11-02] VITALS: Ht 162.6 cm; Wt 72.7 kg
[~2019-11-02 08:39] MED LIST changes: -CARV6 PO; -CLOP75TA3 PO; -MELA5TAB3 PO
[2019-11-02 10:04] LABS: BASOPHILS % (AUTO) 0.8 % (0.0-2.0); EOSINOPHILS % (AUTO) 0.7 % (1.0-6.0); HEMATOCRIT 35.2 % (36-46); HEMOGLOBIN 11.3 g/dL (12.0-16.0); LYMPHOCYTES # (AUTO) 2.8 K/uL (1.0-4.8); LYMPHOCYTES % (AUTO) 32.3 % (22.0-44.0); MEAN CORPUSCULAR HEMOGLOBIN 26.8 pg (26.0-34.0); MEAN CORPUSCULAR HGB CONC 32.1 G/dL (31.0-37.0); MEAN CORPUSCULAR VOLUME 83 fL (80-100); MONOCYTES # (AUTO) 0.5 K/uL (0.1-1.0); MONOCYTES % (AUTO) 5.4 % (2.0-9.0); NEUTROPHILS # (AUTO) 5.3 K/uL (1.8-7.7); NEUTROPHILS % (AUTO) 60.8 % (40.0-70.0); PLATELET COUNT (AUTO) 364 K/uL (150-450); RED BLOOD CELL COUNT(AUTO) 4.22 MIL/uL (4.00-5.20); RED CELL DISTRIBUTION WIDTH 13.6 % (11.5-14.5)
[2019-11-02 10:14] LABS: ANION GAP 4 mmol/L (8-16); CALCIUM, TOTAL 8.7 mg/dL (8.8-10.5); CARBON DIOXIDE 31 mmol/L (22-29); CHLORIDE 106 mmol/L (98-107); GLOMERULAR FILTR. RATE CALC > 60 mL/min (>60); GLUCOSE,RANDOM 97 mg/dL (70-110); POTASSIUM 4.5 mmol/L (3.5-5.1); SODIUM SERUM 141 mmol/L (136-145); UREA NITROGEN, BLOOD 8 mg/dL (7-18)
[2019-11-02 10:18] LABS: INR 1.1 (0.9-1.1); PROTHROMBIN TIME 10.7 SEC (9.4-11.6)
[2019-11-02 10:21] LABS: ALANINE AMINOTRANSFERASE 37 U/L (12-78); ALBUMIN 3.4 g/dL (3.4-5.0); ALKALINE PHOSPHATASE 70 U/L (46-116); ASPARTATE AMINOTRANSFERASE 33 U/L (15-37); BILIRUBIN,TOTAL 0.2 mg/dL (0.1-1.0); TOTAL PROTEIN, SERUM 7.9 g/dL (6.4-8.2)
[2019-11-02] MEDS ORDERED: LORazepam 1 MG TABLET PO ONE (11:30)
[2019-11-02 11:54] LABS: AMPHET/METH SCREEN,URINE POSITIVE (NEGATIVE); BARBITURATE SCREEN, URINE NEGATIVE (NEGATIVE); BENZODIAZEPINES SCREEN,URINE NEGATIVE (NEGATIVE); CANNABINOID SCREEN,URINE NEGATIVE (NEGATIVE); COCAINE SCREEN,URINE NEGATIVE (NEGATIVE); METHADONE SCREEN, URINE NEGATIVE (NEGATIVE); OPIATE SCREEN,URINE NEGATIVE (NEGATIVE); PHENCYCLIDINE SCREEN,URINE NEGATIVE (NEGATIVE)
[2019-11-02] MEDS ORDERED: ACETAMINOPHEN 325 MG TABLET PO PRN (13:45)
[2019-11-02] MEDS ORDERED: ONDANSETRON HCL 4 MG/2 ML VIAL IVP PRN (13:45)
[2019-11-02] MEDS ORDERED: NITROGLYCERIN 2% (1 GM=INCH) PACKET TP ONE (13:45)
[2019-11-02] MEDS ORDERED: ASPIRIN 81 MG CHEWABLE TABLET PO ONE (13:45)
[2019-11-02] MEDS ORDERED: 0.9% SODIUM CHLORIDE 10 ML SYRINGE IVP PRN (13:45)
[2019-11-02] MEDS ORDERED: METOPROLOL TARTRATE 50 MG TABLET PO SCH (14:30)
[2019-11-02] MEDS ORDERED: CloNIDine HCL 0.2 MG TABLET PO SCH (14:30)
[2019-11-02 15:57] VITALS: BP 169/100
[2019-11-25] MEDS ORDERED: MELA5TAB3 PO (12:40)
[2019-11-25] MEDS ORDERED: CLOP75TA3 PO (12:40)
[2019-11-25] MEDS ORDERED: CARV6 PO (12:40)
== END 2019-11-02 17:00 | disposition left against medical advice (07) ==
LOC: EMS 08:40
DX: I11.9 Hypertensive heart disease without heart failure (principal); F15.10 Other stimulant abuse, uncomplicated; F41.9 Anxiety disorder, unspecified; G89.18 Other acute postprocedural pain; M25.531 Pain in right wrist; M19.90 Unspecified osteoarthritis, unspecified site; F31.9 Bipolar disorder, unspecified; F20.9 Schizophrenia, unspecified; F11.10 Opioid abuse, uncomplicated; F17.210 Nicotine dependence, cigarettes, uncomplicated; Z59.0 Homelessness; Z79.899 Other long term (current) drug therapy; Z88.8 Allergy status to other drugs, medicaments and biological substances
CPT/HCPCS: 93005

== ENCOUNTER → 2019-11-25 | Outpatient (CLI) | payer MEDICARE, MEDICAID ==
[~2019-11-25] VITALS: Ht 160 cm; Wt 74.5 kg
[~2019-11-25] MED LIST changes: +CARV6 PO; +CLOP75TA3 PO; +MELA5TAB3 PO
[2019-11-25 12:33] VITALS: BP 107/64
== END | disposition home or self-care (01) ==
LOC: SRCNTR 12:32
PROVIDERS: ATTEND Hospitalist
DX: J44.9 Chronic obstructive pulmonary disease, unspecified (principal); I10 Essential (primary) hypertension; F41.1 Generalized anxiety disorder; G62.9 Polyneuropathy, unspecified
CPT/HCPCS: G0463

== ENCOUNTER → 2020-05-11 | Outpatient (CLI) | payer MEDICARE, OTHER ==
[~2020-05-11] VITALS: Ht 160 cm; Wt 74.1 kg
[~2020-05-11] MED LIST changes: +ALPR-341 PO; -ALPR0.5T8 PO; -ASPI-1111 PO; +ASPI-728 PO; -ATOR10TA84 PO; +ATOR20TA86 PO; +CARV12 PO; -CARV6 PO; -CHOL100018 PO; +CLOP-31 PO; -CLOP75TA3 PO; +CloNIDine HCL 0.1 MG TABLET PO ONE; +GABA-1216 PO; -GABA-529 PO; -ISOS30TA6 PO; -MELA5TAB3 PO; -METO25 PO; +TRAZ-252 PO
[2020-05-11 10:56] VITALS: BP 188/107
== END | disposition home or self-care (01) ==
LOC: SRCNTR 10:55
PROVIDERS: ATTEND Hospitalist
DX: J44.9 Chronic obstructive pulmonary disease, unspecified (principal); R07.9 Chest pain, unspecified; I10 Essential (primary) hypertension; E78.5 Hyperlipidemia, unspecified; F41.9 Anxiety disorder, unspecified; M16.11 Unilateral primary osteoarthritis, right hip; F32.9 Major depressive disorder, single episode, unspecified; F20.9 Schizophrenia, unspecified; M19.90 Unspecified osteoarthritis, unspecified site; J40 Bronchitis, not specified as acute or chronic; G62.9 Polyneuropathy, unspecified; F19.11 Other psychoactive substance abuse, in remission; I21.29 ST elevation (STEMI) myocardial infarction involving other sites; M79.605 Pain in left leg; Z95.818 Presence of other cardiac implants and grafts; Z79.899 Other long term (current) drug therapy; Z79.891 Long term (current) use of opiate analgesic
CPT/HCPCS: G0463

== ENCOUNTER 2020-06-12 17:13 | Emergency (ER) | payer MEDICARE, OTHER ==
[~2020-06-12] VITALS: Ht 157.5 cm; Wt 81.8 kg
[~2020-06-12 17:13] MED LIST changes: -CloNIDine HCL 0.1 MG TABLET PO ONE
[2020-06-12 18:53] VITALS: BP 144/89
== END 2020-06-12 18:58 | disposition home or self-care (01) ==
LOC: EMS 17:13
DX: S90.561A Insect bite (nonvenomous), right ankle, initial encounter (principal); S30.860A Insect bite (nonvenomous) of lower back and pelvis, initial encounter; L03.317 Cellulitis of buttock; L08.9 Local infection of the skin and subcutaneous tissue, unspecified; F17.210 Nicotine dependence, cigarettes, uncomplicated; F41.9 Anxiety disorder, unspecified; F31.9 Bipolar disorder, unspecified; I11.9 Hypertensive heart disease without heart failure; I25.2 Old myocardial infarction; F20.9 Schizophrenia, unspecified; F14.90 Cocaine use, unspecified, uncomplicated; F12.90 Cannabis use, unspecified, uncomplicated; F19.90 Other psychoactive substance use, unspecified, uncomplicated; Z59.0 Homelessness; Z88.1 Allergy status to other antibiotic agents; Z88.8 Allergy status to other drugs, medicaments and biological substances; Z79.82 Long term (current) use of aspirin; W57.XXXA Bitten or stung by nonvenomous insect and other nonvenomous arthropods, initial encounter; Y93.89 Activity, other specified; Y92.89 Other specified places as the place of occurrence of the external cause; Y99.8 Other external cause status
CPT/HCPCS: 99406

== ENCOUNTER → 2020-06-15 | Outpatient (CLI) | payer MEDICARE, OTHER ==
[~2020-06-15] VITALS: Ht 160 cm; Wt 72.2 kg
[~2020-06-15] MED LIST changes: -TRAZ-252 PO
[2020-06-15 10:42] VITALS: BP 148/94
== END | disposition home or self-care (01) ==
LOC: SRCNTR 10:38
PROVIDERS: ATTEND Hospitalist
DX: S71.051A Open bite, right hip, initial encounter (principal); I10 Essential (primary) hypertension; I25.10 Atherosclerotic heart disease of native coronary artery without angina pectoris; J44.9 Chronic obstructive pulmonary disease, unspecified; F41.9 Anxiety disorder, unspecified; F20.9 Schizophrenia, unspecified; W57.XXXA Bitten or stung by nonvenomous insect and other nonvenomous arthropods, initial encounter; Y93.89 Activity, other specified; Y92.89 Other specified places as the place of occurrence of the external cause; Y99.8 Other external cause status
CPT/HCPCS: G0463; Z7500

== ENCOUNTER → 2020-08-31 | Outpatient (CLI) | payer MEDICARE, MEDICAID ==
[~2020-08-31] MED LIST changes: -ALPR-341 PO; -HYDR-4061 PO
== END | disposition home or self-care (01) ==
LOC: SRCNTR 11:40
PROVIDERS: ATTEND Hospitalist
DX: I25.10 Atherosclerotic heart disease of native coronary artery without angina pectoris (principal); I10 Essential (primary) hypertension; F20.89 Other schizophrenia; F32.9 Major depressive disorder, single episode, unspecified
CPT/HCPCS: Q3014

== ENCOUNTER 2020-09-26 17:05 | Inpatient (IN) | payer MEDICARE, MEDICAID ==
[~2020-09-26] VITALS: Ht 157.5 cm; Wt 73.0 kg
[~2020-09-26 17:05] MED LIST changes: -CLOP-31 PO; +CLOP75TA60 PO
[2020-09-26 17:10] VITALS: BP 136/82
[2020-09-26 20:20] VITALS: BP 105/86
[2020-09-26] MEDS: SENNA 187 MG TABLET PO SCH (20:22)
[2020-09-26] MEDS: ATORVASTATIN CALCIUM 40 MG TABLET PO SCH (20:22)
[2020-09-26] MEDS: DOCUSATE SODIUM 100 MG CAPSULE PO SCH (20:22)
[2020-09-26] MEDS: QUEtiapine FUMARATE 200 MG TABLET PO SCH (20:41)
[2020-09-26 21:29] VITALS: BP 138/65
[2020-09-26] MEDS: HydrALAZINE HCL 25 MG TABLET PO SCH (21:31)
[2020-09-26] MEDS: CARVEDILOL 25 MG TABLET PO SCH (21:31)
[2020-09-27 00:30] VITALS: BP 112/60
[2020-09-27 06:25] LABS: BASOPHILS % (AUTO) 1.2 % (0.0-2.0); EOSINOPHILS % (AUTO) 1.2 % (1.0-6.0); LYMPHOCYTES # (AUTO) 4.6 K/uL (1.0-4.8); LYMPHOCYTES % (AUTO) 34.1 % (22.0-44.0); MEAN CORPUSCULAR HEMOGLOBIN 25.3 pg (26.0-34.0); MEAN CORPUSCULAR HGB CONC 31.7 G/dL (31.0-37.0); MEAN CORPUSCULAR VOLUME 80 fL (80-100); MONOCYTES # (AUTO) 1.1 K/uL (0.1-1.0); MONOCYTES % (AUTO) 7.8 % (2.0-9.0); NEUTROPHILS # (AUTO) 7.6 K/uL (1.8-7.7); NEUTROPHILS % (AUTO) 55.7 % (40.0-70.0); PLATELET COUNT (AUTO) 356 K/uL (150-450); RED BLOOD CELL COUNT(AUTO) 4.74 MIL/uL (4.00-5.20); RED CELL DISTRIBUTION WIDTH 14.8 % (11.5-14.5)
[2020-09-27] MEDS: LISINOPRIL 20 MG TABLET PO SCH (07:44)
[2020-09-27] MEDS: CHLORTHALIDONE 25 MG TABLET PO SCH (07:44)
[2020-09-27] MEDS: DOCUSATE SODIUM 100 MG CAPSULE PO SCH ×2 (07:44→20:16)
[2020-09-27] MEDS: HydrALAZINE HCL 25 MG TABLET PO SCH ×3 (07:44→20:16)
[2020-09-27] MEDS: FLUoxetine HCL 10 MG CAPSULE PO SCH (07:44)
[2020-09-27] MEDS: CARVEDILOL 25 MG TABLET PO SCH ×2 (07:44→20:16)
[2020-09-27 07:54] LABS: ALANINE AMINOTRANSFERASE 52 U/L (12-78); ALBUMIN 3.2 g/dL (3.4-5.0); ALKALINE PHOSPHATASE 86 U/L (46-116); ANION GAP 11 mmol/L (8-16); ASPARTATE AMINOTRANSFERASE 55 U/L (15-37); BILIRUBIN,TOTAL 0.3 mg/dL (0.1-1.0); CALCIUM, TOTAL 9.8 mg/dL (8.8-10.5); CARBON DIOXIDE 26 mmol/L (22-29); CHLORIDE 100 mmol/L (98-107); CREATININE 0.91 mg/dL (0.60-1.30); GLOMERULAR FILTR. RATE CALC > 60 mL/min (>60); GLUCOSE,RANDOM 99 mg/dL (70-110); POTASSIUM 3.9 mmol/L (3.5-5.1); SODIUM SERUM 137 mmol/L (136-145); TOTAL PROTEIN, SERUM 8.3 g/dL (6.4-8.2); UREA NITROGEN, BLOOD 35 mg/dL (7-18)
[2020-09-27 08:00] VITALS: BP 139/68
[2020-09-27 15:40] VITALS: BP 140/77
[2020-09-27 20:14] VITALS: BP 138/88
[2020-09-27] MEDS: SENNA 187 MG TABLET PO SCH (20:16)
[2020-09-27] MEDS: ATORVASTATIN CALCIUM 40 MG TABLET PO SCH (20:16)
[2020-09-27] MEDS: QUEtiapine FUMARATE 200 MG TABLET PO SCH (20:17)
[2020-09-28] VITALS: BP 96/51
[2020-09-28 06:15] VITALS: BP 112/56
[2020-09-28 07:17] VITALS: BP 149/60
[2020-09-28 07:52] LABS: BILIRUBIN,URINE NEGATIVE (NEGATIVE); GLUCOSE, URINE (UA) NEGATIVE (NEGATIVE); KETONES,URINE NEGATIVE (NEGATIVE); NITRATE,URINE NEGATIVE (NEGATIVE); PH,URINE 6.5 (5.0-8.0); PROTEIN,URINE NEGATIVE (NEGATIVE)
[2020-09-28] MEDS: HydrALAZINE HCL 25 MG TABLET PO SCH ×3 (08:01→20:09)
[2020-09-28] MEDS: CHLORTHALIDONE 25 MG TABLET PO SCH (08:02)
[2020-09-28] MEDS: FLUoxetine HCL 10 MG CAPSULE PO SCH (08:02)
[2020-09-28] MEDS: LISINOPRIL 20 MG TABLET PO SCH (08:02)
[2020-09-28] MEDS: CARVEDILOL 25 MG TABLET PO SCH ×2 (08:02→20:09)
[2020-09-28] MEDS: DOCUSATE SODIUM 100 MG CAPSULE PO SCH ×2 (08:02→20:09)
[2020-09-28 08:51] LABS: LEUKOCYTE ESTERASE ,URINE TRACE (NEGATIVE); OCCULT BLOOD,URINE TRACE (NEGATIVE)
[2020-09-28 08:52] LABS: APPEARANCE,URINE HAZY (CLEAR); BACTERIA,URINE Moderate /HPF (None Seen); RBC,URINE 0-2 /HPF (0-2); SQUAMOUS EPITHELIAL CELL,UR Few /LPF (None Seen); WBC,URINE 0-2 /HPF (0-5)
[2020-09-28 16:00] VITALS: BP 107/79
[2020-09-28 16:15] VITALS: BP 134/78
[2020-09-28] MEDS: ACETAMINOPHEN 325 MG TABLET PO PRN (17:26)
[2020-09-28] MEDS: SENNA 187 MG TABLET PO SCH (20:09)
[2020-09-28] MEDS: ATORVASTATIN CALCIUM 40 MG TABLET PO SCH (20:09)
[2020-09-28] MEDS: QUEtiapine FUMARATE 200 MG TABLET PO SCH (20:09)
[2020-09-29 00:32] VITALS: BP 130/72
[2020-09-29 08:05] VITALS: BP 134/66
[2020-09-29] MEDS: DOCUSATE SODIUM 100 MG CAPSULE PO SCH ×2 (09:14→20:10)
[2020-09-29] MEDS: LISINOPRIL 20 MG TABLET PO SCH (09:14)
[2020-09-29] MEDS: FLUoxetine HCL 10 MG CAPSULE PO SCH (09:14)
[2020-09-29] MEDS: CHLORTHALIDONE 25 MG TABLET PO SCH (09:14)
[2020-09-29] MEDS: CARVEDILOL 25 MG TABLET PO SCH ×2 (09:14→20:09)
[2020-09-29] MEDS: HydrALAZINE HCL 25 MG TABLET PO SCH ×3 (09:14→20:09)
[2020-09-29 15:18] VITALS: BP 123/59
[2020-09-29] MEDS: ACETAMINOPHEN 325 MG TABLET PO PRN (15:55)
[2020-09-29 20:07] VITALS: BP 129/68
[2020-09-29] MEDS: QUEtiapine FUMARATE 200 MG TABLET PO SCH (20:09)
[2020-09-29] MEDS: ATORVASTATIN CALCIUM 40 MG TABLET PO SCH (20:10)
[2020-09-29] MEDS: SENNA 187 MG TABLET PO SCH (20:10)
[2020-09-30 02:30] VITALS: BP 104/65
[2020-09-30 07:30] VITALS: BP 125/65
[2020-09-30] MEDS: DOCUSATE SODIUM 100 MG CAPSULE PO SCH ×2 (08:06→20:08)
[2020-09-30] MEDS: CARVEDILOL 25 MG TABLET PO SCH ×2 (08:06→20:08)
[2020-09-30] MEDS: FLUoxetine HCL 10 MG CAPSULE PO SCH (08:06)
[2020-09-30] MEDS: HydrALAZINE HCL 25 MG TABLET PO SCH ×3 (08:06→20:08)
[2020-09-30] MEDS: CHLORTHALIDONE 25 MG TABLET PO SCH (08:06)
[2020-09-30] MEDS: LISINOPRIL 20 MG TABLET PO SCH (08:06)
[2020-09-30] MEDS: ACETAMINOPHEN 325 MG TABLET PO PRN (10:13)
[2020-09-30] MEDS: HydrOXYzine PAMOATE 25 MG CAPSULE PO PRN (12:30)
[2020-09-30 16:12] VITALS: BP 115/88
[2020-09-30 20:00] VITALS: BP 134/67
[2020-09-30] MEDS: ATORVASTATIN CALCIUM 40 MG TABLET PO SCH (20:08)
[2020-09-30] MEDS: QUEtiapine FUMARATE 200 MG TABLET PO SCH (20:08)
[2020-09-30] MEDS: SENNA 187 MG TABLET PO SCH (20:08)
[2020-09-30] MEDS: AMPICILLIN TRIHYDRATE 500 MG CAPSULE PO SCH (21:17)
[2020-10-01 03:50] VITALS: BP 125/68
[2020-10-01] MEDS: HydrOXYzine PAMOATE 25 MG CAPSULE PO PRN ×2 (03:58→15:49)
[2020-10-01 07:30] VITALS: BP 135/72
[2020-10-01 08:52] LABS: BASOPHILS % (AUTO) 0.7 % (0.0-2.0); EOSINOPHILS % (AUTO) 2.1 % (1.0-6.0); HEMATOCRIT 38.5 % (36-46); HEMOGLOBIN 12.1 g/dL (12.0-16.0); LYMPHOCYTES # (AUTO) 3.6 K/uL (1.0-4.8); LYMPHOCYTES % (AUTO) 50.1 % (22.0-44.0); MEAN CORPUSCULAR HEMOGLOBIN 25.2 pg (26.0-34.0); MEAN CORPUSCULAR HGB CONC 31.3 G/dL (31.0-37.0); MEAN CORPUSCULAR VOLUME 81 fL (80-100); MONOCYTES # (AUTO) 0.5 K/uL (0.1-1.0); MONOCYTES % (AUTO) 7.5 % (2.0-9.0); NEUTROPHILS # (AUTO) 2.9 K/uL (1.8-7.7); NEUTROPHILS % (AUTO) 39.6 % (40.0-70.0); PLATELET COUNT (AUTO) 402 K/uL (150-450); RED BLOOD CELL COUNT(AUTO) 4.78 MIL/uL (4.00-5.20); RED CELL DISTRIBUTION WIDTH 14.7 % (11.5-14.5)
[2020-10-01] MEDS: LISINOPRIL 20 MG TABLET PO SCH (09:29)
[2020-10-01] MEDS: CHLORTHALIDONE 25 MG TABLET PO SCH (09:29)
[2020-10-01] MEDS: FLUoxetine HCL 10 MG CAPSULE PO SCH (09:29)
[2020-10-01] MEDS: HydrALAZINE HCL 25 MG TABLET PO SCH ×3 (09:29→19:58)
[2020-10-01] MEDS: CARVEDILOL 25 MG TABLET PO SCH ×2 (09:29→19:58)
[2020-10-01] MEDS: AMPICILLIN TRIHYDRATE 500 MG CAPSULE PO SCH ×3 (09:29→19:58)
[2020-10-01] MEDS: DOCUSATE SODIUM 100 MG CAPSULE PO SCH ×2 (09:29→19:58)
[2020-10-01 15:21] VITALS: BP 125/61
[2020-10-01 19:58] VITALS: BP 143/94
[2020-10-01] MEDS: SENNA 187 MG TABLET PO SCH (19:58)
[2020-10-01] MEDS: QUEtiapine FUMARATE 200 MG TABLET PO SCH (19:58)
[2020-10-01] MEDS: ATORVASTATIN CALCIUM 40 MG TABLET PO SCH (19:58)
[2020-10-02 00:43] VITALS: BP 103/56
[2020-10-02 06:45] VITALS: BP 139/66
[2020-10-02] MEDS: HydrALAZINE HCL 25 MG TABLET PO SCH ×3 (08:17→20:01)
[2020-10-02] MEDS: CARVEDILOL 25 MG TABLET PO SCH ×2 (08:18→20:01)
[2020-10-02] MEDS: FLUoxetine HCL 10 MG CAPSULE PO SCH (08:18)
[2020-10-02] MEDS: DOCUSATE SODIUM 100 MG CAPSULE PO SCH ×2 (08:18→20:01)
[2020-10-02] MEDS: LISINOPRIL 20 MG TABLET PO SCH (08:18)
[2020-10-02] MEDS: CHLORTHALIDONE 25 MG TABLET PO SCH (08:18)
[2020-10-02] MEDS: AMPICILLIN TRIHYDRATE 500 MG CAPSULE PO SCH ×3 (08:18→20:01)
[2020-10-02 16:56] VITALS: BP 117/89
[2020-10-02] MEDS: QUEtiapine FUMARATE 200 MG TABLET PO SCH (20:01)
[2020-10-02] MEDS: SENNA 187 MG TABLET PO SCH (20:01)
[2020-10-02] MEDS: ATORVASTATIN CALCIUM 40 MG TABLET PO SCH (20:01)
[2020-10-03 05:54] VITALS: BP 121/66
[2020-10-03 08:06] VITALS: BP 111/61
[2020-10-03] MEDS: CHLORTHALIDONE 25 MG TABLET PO SCH (08:09)
[2020-10-03] MEDS: HydrALAZINE HCL 25 MG TABLET PO SCH ×3 (08:09→20:08)
[2020-10-03] MEDS: LISINOPRIL 20 MG TABLET PO SCH (08:09)
[2020-10-03] MEDS: FLUoxetine HCL 10 MG CAPSULE PO SCH (08:09)
[2020-10-03] MEDS: DOCUSATE SODIUM 100 MG CAPSULE PO SCH ×2 (08:09→20:08)
[2020-10-03] MEDS: AMPICILLIN TRIHYDRATE 500 MG CAPSULE PO SCH ×3 (08:09→20:07)
[2020-10-03] MEDS: CARVEDILOL 25 MG TABLET PO SCH (09:00)
[2020-10-03] MEDS: ACETAMINOPHEN 325 MG TABLET PO PRN (16:08)
[2020-10-03 18:08] VITALS: BP 127/77
[2020-10-03 20:00] VITALS: BP 150/78
[2020-10-03] MEDS: ATORVASTATIN CALCIUM 40 MG TABLET PO SCH (20:07)
[2020-10-03] MEDS: QUEtiapine FUMARATE 200 MG TABLET PO SCH (20:07)
[2020-10-03] MEDS: SENNA 187 MG TABLET PO SCH (20:08)
[2020-10-03] MEDS: CARVEDILOL 12.5 MG TABLET PO SCH (20:08)
[2020-10-03 23:30] VITALS: BP 103/50
[2020-10-04] VITALS: BP 103/50
[2020-10-04] MEDS ORDERED: DOCU-275 PO (04:12)
[2020-10-04] MEDS ORDERED: PROZ10 PO (04:14)
[2020-10-04] MEDS ORDERED: CHL25 PO (04:14)
[2020-10-04] MEDS ORDERED: LISI-662 PO (04:14)
[2020-10-04] MEDS ORDERED: HYDR25TA84 PO (04:17)
[2020-10-04] MEDS ORDERED: SENN8.6T90 PO (04:17)
[2020-10-04 07:10] VITALS: BP 102/63
[2020-10-04] MEDS: CARVEDILOL 12.5 MG TABLET PO SCH ×2 (09:00→20:06)
[2020-10-04] MEDS: HydrALAZINE HCL 25 MG TABLET PO SCH ×3 (09:00→20:06)
[2020-10-04] MEDS: CHLORTHALIDONE 25 MG TABLET PO SCH (09:00)
[2020-10-04] MEDS: LISINOPRIL 20 MG TABLET PO SCH (09:00)
[2020-10-04] MEDS: FLUoxetine HCL 10 MG CAPSULE PO SCH (10:02)
[2020-10-04] MEDS: DOCUSATE SODIUM 100 MG CAPSULE PO SCH ×2 (10:02→20:06)
[2020-10-04] MEDS: AMPICILLIN TRIHYDRATE 500 MG CAPSULE PO SCH ×3 (10:02→20:06)
[2020-10-04 13:05] VITALS: BP 123/79
[2020-10-04 16:31] VITALS: BP 130/70
[2020-10-04] MEDS: SENNA 187 MG TABLET PO SCH (20:06)
[2020-10-04] MEDS: QUEtiapine FUMARATE 200 MG TABLET PO SCH (20:06)
[2020-10-04] MEDS: ATORVASTATIN CALCIUM 40 MG TABLET PO SCH (20:06)
[2020-10-05 06:07] VITALS: BP 123/65
[2020-10-05 08:15] VITALS: BP 122/51
[2020-10-05] MEDS: CHLORTHALIDONE 25 MG TABLET PO SCH (09:00)
[2020-10-05] MEDS: HydrALAZINE HCL 25 MG TABLET PO SCH ×3 (09:00→20:10)
[2020-10-05] MEDS: LISINOPRIL 20 MG TABLET PO SCH (09:00)
[2020-10-05] MEDS: CARVEDILOL 12.5 MG TABLET PO SCH ×2 (09:00→20:09)
[2020-10-05] MEDS: AMPICILLIN TRIHYDRATE 500 MG CAPSULE PO SCH ×3 (09:14→20:10)
[2020-10-05] MEDS: FLUoxetine HCL 10 MG CAPSULE PO SCH (09:14)
[2020-10-05] MEDS: DOCUSATE SODIUM 100 MG CAPSULE PO SCH ×2 (09:14→20:10)
[2020-10-05 11:00] VITALS: BP 131/48
[2020-10-05 16:17] VITALS: BP 143/75
[2020-10-05 20:00] VITALS: BP 145/76
[2020-10-05] MEDS: QUEtiapine FUMARATE 200 MG TABLET PO SCH (20:10)
[2020-10-05] MEDS: ATORVASTATIN CALCIUM 40 MG TABLET PO SCH (20:10)
[2020-10-05] MEDS: SENNA 187 MG TABLET PO SCH (20:10)
[2020-10-05 21:10] VITALS: BP 141/90
[2020-10-06] VITALS: BP 107/58
[2020-10-06 07:07] VITALS: BP 139/69
[2020-10-06] MEDS: ASPIRIN 81 MG CHEWABLE TABLET PO SCH (08:28)
[2020-10-06] MEDS: HydrALAZINE HCL 25 MG TABLET PO SCH ×3 (08:28→20:01)
[2020-10-06] MEDS: AMPICILLIN TRIHYDRATE 500 MG CAPSULE PO SCH (08:28)
[2020-10-06] MEDS: DOCUSATE SODIUM 100 MG CAPSULE PO SCH ×2 (08:29→20:07)
[2020-10-06] MEDS: LISINOPRIL 20 MG TABLET PO SCH (08:29)
[2020-10-06] MEDS: CHLORTHALIDONE 25 MG TABLET PO SCH (08:29)
[2020-10-06] MEDS: FLUoxetine HCL 10 MG CAPSULE PO SCH (08:29)
[2020-10-06] MEDS: CARVEDILOL 12.5 MG TABLET PO SCH ×2 (08:52→20:01)
[2020-10-06 15:36] VITALS: BP 135/79
[2020-10-06] MEDS: HydrOXYzine PAMOATE 25 MG CAPSULE PO PRN (16:40)
[2020-10-06 20:00] VITALS: BP 135/78
[2020-10-06] MEDS: SENNA 187 MG TABLET PO SCH (20:01)
[2020-10-06] MEDS: ATORVASTATIN CALCIUM 40 MG TABLET PO SCH (20:01)
[2020-10-06] MEDS: QUEtiapine FUMARATE 200 MG TABLET PO SCH (20:01)
[2020-10-07 05:00] VITALS: BP 97/68
[2020-10-07 08:05] VITALS: BP 118/77
[2020-10-07] MEDS: HydrALAZINE HCL 25 MG TABLET PO SCH ×3 (08:22→20:05)
[2020-10-07] MEDS: FLUoxetine HCL 10 MG CAPSULE PO SCH (08:22)
[2020-10-07] MEDS: ASPIRIN 81 MG CHEWABLE TABLET PO SCH (08:22)
[2020-10-07] MEDS: CHLORTHALIDONE 25 MG TABLET PO SCH (08:22)
[2020-10-07] MEDS: DOCUSATE SODIUM 100 MG CAPSULE PO SCH ×2 (08:23→20:05)
[2020-10-07] MEDS: LISINOPRIL 20 MG TABLET PO SCH (08:23)
[2020-10-07] MEDS: CARVEDILOL 12.5 MG TABLET PO SCH (08:30)
[2020-10-07] MEDS: HydrOXYzine PAMOATE 25 MG CAPSULE PO PRN (16:03)
[2020-10-07 16:09] VITALS: BP 141/68
[2020-10-07 20:00] VITALS: BP 147/74
[2020-10-07] MEDS: SENNA 187 MG TABLET PO SCH (20:05)
[2020-10-07] MEDS: CARVEDILOL 3.125 MG TABLET PO SCH (20:05)
[2020-10-07] MEDS: QUEtiapine FUMARATE 200 MG TABLET PO SCH (20:05)
[2020-10-07] MEDS: ATORVASTATIN CALCIUM 40 MG TABLET PO SCH (20:05)
[2020-10-08 02:43] VITALS: BP 110/62
[2020-10-08 07:45] VITALS: BP 123/57
[2020-10-08] MEDS: HydrALAZINE HCL 25 MG TABLET PO SCH ×3 (08:08→20:15)
[2020-10-08] MEDS: LISINOPRIL 20 MG TABLET PO SCH (08:08)
[2020-10-08] MEDS: CARVEDILOL 3.125 MG TABLET PO SCH ×2 (08:08→20:15)
[2020-10-08] MEDS: ASPIRIN 81 MG CHEWABLE TABLET PO SCH (08:08)
[2020-10-08] MEDS: DOCUSATE SODIUM 100 MG CAPSULE PO SCH ×2 (08:08→20:15)
[2020-10-08] MEDS: FLUoxetine HCL 10 MG CAPSULE PO SCH (08:09)
[2020-10-08] MEDS: CHLORTHALIDONE 25 MG TABLET PO SCH (08:09)
[2020-10-08 15:22] VITALS: BP 141/91
[2020-10-08] MEDS: HydrOXYzine PAMOATE 25 MG CAPSULE PO PRN (16:46)
[2020-10-08 20:13] VITALS: BP 135/79
[2020-10-08] MEDS: QUEtiapine FUMARATE 200 MG TABLET PO SCH (20:15)
[2020-10-08] MEDS: ATORVASTATIN CALCIUM 40 MG TABLET PO SCH (20:15)
[2020-10-08] MEDS: SENNA 187 MG TABLET PO SCH (20:15)
[2020-10-09 06:15] VITALS: BP 135/72
[2020-10-09 08:01] VITALS: BP 131/71
[2020-10-09] MEDS: HydrALAZINE HCL 25 MG TABLET PO SCH ×3 (09:05→20:10)
[2020-10-09] MEDS: LISINOPRIL 20 MG TABLET PO SCH (09:06)
[2020-10-09] MEDS: CARVEDILOL 3.125 MG TABLET PO SCH ×2 (09:06→20:10)
[2020-10-09] MEDS: CHLORTHALIDONE 25 MG TABLET PO SCH (09:06)
[2020-10-09] MEDS: ASPIRIN 81 MG CHEWABLE TABLET PO SCH (09:06)
[2020-10-09] MEDS: DOCUSATE SODIUM 100 MG CAPSULE PO SCH ×2 (09:06→20:10)
[2020-10-09] MEDS: FLUoxetine HCL 10 MG CAPSULE PO SCH (09:06)
[2020-10-09] MEDS: HydrOXYzine PAMOATE 25 MG CAPSULE PO PRN (16:06)
[2020-10-09 16:26] VITALS: BP 115/70
[2020-10-09] MEDS: QUEtiapine FUMARATE 200 MG TABLET PO SCH (20:10)
[2020-10-09] MEDS: ATORVASTATIN CALCIUM 40 MG TABLET PO SCH (20:10)
[2020-10-09] MEDS: SENNA 187 MG TABLET PO SCH (20:10)
[2020-10-10 05:33] VITALS: BP 99/53
[2020-10-10 07:49] VITALS: BP 114/64
[2020-10-10] MEDS: CHLORTHALIDONE 25 MG TABLET PO SCH (08:15)
[2020-10-10] MEDS: HydrALAZINE HCL 25 MG TABLET PO SCH ×3 (08:15→20:27)
[2020-10-10] MEDS: ASPIRIN 81 MG CHEWABLE TABLET PO SCH (08:15)
[2020-10-10] MEDS: LISINOPRIL 20 MG TABLET PO SCH (08:15)
[2020-10-10] MEDS: FLUoxetine HCL 10 MG CAPSULE PO SCH (08:15)
[2020-10-10] MEDS: DOCUSATE SODIUM 100 MG CAPSULE PO SCH ×2 (08:15→20:27)
[2020-10-10] MEDS: CARVEDILOL 3.125 MG TABLET PO SCH ×2 (08:17→20:27)
[2020-10-10] MEDS: HydrOXYzine PAMOATE 25 MG CAPSULE PO PRN (15:59)
[2020-10-10 16:03] VITALS: BP 128/64
[2020-10-10] MEDS: ACETAMINOPHEN 325 MG TABLET PO PRN (17:02)
[2020-10-10 20:23] VITALS: BP 124/55
[2020-10-10] MEDS: SENNA 187 MG TABLET PO SCH (20:27)
[2020-10-10] MEDS: ATORVASTATIN CALCIUM 40 MG TABLET PO SCH (20:27)
[2020-10-10] MEDS: QUEtiapine FUMARATE 200 MG TABLET PO SCH (20:27)
[2020-10-10] MEDS ORDERED: CARV3 PO (20:53)
[2020-10-11 06:15] VITALS: BP 113/76
[2020-10-11] MEDS: DOCUSATE SODIUM 100 MG CAPSULE PO SCH ×2 (07:55→20:04)
[2020-10-11] MEDS: FLUoxetine HCL 10 MG CAPSULE PO SCH (07:55)
[2020-10-11] MEDS: CARVEDILOL 3.125 MG TABLET PO SCH ×2 (07:55→20:04)
[2020-10-11] MEDS: ASPIRIN 81 MG CHEWABLE TABLET PO SCH (07:55)
[2020-10-11] MEDS: CHLORTHALIDONE 25 MG TABLET PO SCH (07:55)
[2020-10-11] MEDS: LISINOPRIL 20 MG TABLET PO SCH (07:55)
[2020-10-11] MEDS: HydrALAZINE HCL 25 MG TABLET PO SCH ×3 (07:55→20:04)
[2020-10-11 09:48] VITALS: BP 123/67
[2020-10-11] MEDS: HydrOXYzine PAMOATE 25 MG CAPSULE PO PRN (15:08)
[2020-10-11] MEDS: ACETAMINOPHEN 325 MG TABLET PO PRN (15:08)
[2020-10-11 16:12] VITALS: BP 145/80
[2020-10-11] MEDS: QUEtiapine FUMARATE 200 MG TABLET PO SCH (20:04)
[2020-10-11] MEDS: SENNA 187 MG TABLET PO SCH (20:04)
[2020-10-11] MEDS: ATORVASTATIN CALCIUM 40 MG TABLET PO SCH (20:04)
[2020-10-12 00:30] VITALS: BP 91/47
[2020-10-12 06:29] VITALS: BP 117/63
[2020-10-12 07:21] VITALS: BP 137/79
[2020-10-12] MEDS: HydrALAZINE HCL 25 MG TABLET PO SCH ×3 (08:08→20:02)
[2020-10-12] MEDS: ASPIRIN 81 MG CHEWABLE TABLET PO SCH (08:08)
[2020-10-12] MEDS: CARVEDILOL 3.125 MG TABLET PO SCH ×2 (08:09→20:02)
[2020-10-12] MEDS: LISINOPRIL 20 MG TABLET PO SCH (08:09)
[2020-10-12] MEDS: DOCUSATE SODIUM 100 MG CAPSULE PO SCH ×2 (08:09→20:02)
[2020-10-12] MEDS: FLUoxetine HCL 10 MG CAPSULE PO SCH (08:09)
[2020-10-12] MEDS: CHLORTHALIDONE 25 MG TABLET PO SCH (08:09)
[2020-10-12] MEDS: ACETAMINOPHEN 325 MG TABLET PO PRN (15:48)
[2020-10-12] MEDS: HydrOXYzine PAMOATE 25 MG CAPSULE PO PRN (15:48)
[2020-10-12 16:24] VITALS: BP 132/48
[2020-10-12] MEDS ORDERED: DiphenhydrAMINE HCL 25 MG CAPSULE PO ONE (18:30)
[2020-10-12] MEDS: QUEtiapine FUMARATE 200 MG TABLET PO SCH (20:02)
[2020-10-12] MEDS: ATORVASTATIN CALCIUM 40 MG TABLET PO SCH (20:02)
[2020-10-12] MEDS: SENNA 187 MG TABLET PO SCH (20:02)
[2020-10-12 20:10] VITALS: BP 155/86
[2020-10-12] MEDS ORDERED: HYDR-4031 PO (20:57)
[2020-10-13] VITALS: BP 117/65
[2020-10-13] MEDS: ASPIRIN 81 MG CHEWABLE TABLET PO SCH (08:16)
[2020-10-13] MEDS: FLUoxetine HCL 10 MG CAPSULE PO SCH (08:17)
[2020-10-13] MEDS: DOCUSATE SODIUM 100 MG CAPSULE PO SCH (08:17)
[2020-10-13] MEDS: HydrALAZINE HCL 25 MG TABLET PO SCH (08:17)
[2020-10-13] MEDS: CARVEDILOL 3.125 MG TABLET PO SCH (08:17)
[2020-10-13 08:26] VITALS: BP 127/78
[2020-10-13] MEDS: CHLORTHALIDONE 25 MG TABLET PO SCH (08:50)
== END 2020-10-13 12:20 | disposition home health service (06) | DRG 56 ==
LOC: 2WR 17:05
PROVIDERS: ADMIT Physical Medicine & Rehabilitation; ATTEND Physical Medicine & Rehabilitation
DX: I69.351 Hemiplegia and hemiparesis following cerebral infarction affecting right dominant side (principal); I63.9 Cerebral infarction, unspecified; R13.10 Dysphagia, unspecified; I10 Essential (primary) hypertension; F19.10 Other psychoactive substance abuse, uncomplicated; F25.9 Schizoaffective disorder, unspecified; Z98.61 Coronary angioplasty status; B19.20 Unspecified viral hepatitis C without hepatic coma
CPT/HCPCS: 70450; 74230; 87081; 87086; 92507; 92523; 92526; 92611; 93970; 97110; 97112; 97116; 97150; 97163; 97166; 97530; 97535; 99366

== ENCOUNTER → 2020-10-19 | Outpatient (CLI) | payer MEDICARE, MEDICAID ==
[~2020-10-19] MED LIST changes: +ASPI-1450 PO; -ASPI-728 PO; -CARV12 PO; +CARV3 PO; +CHL25 PO; -CLON0.2T2 PO; -CLOP75TA60 PO; +DOCU-275 PO; -GABA-1216 PO; +HYDR-4031 PO; +HYDR25TA84 PO; +PROZ10 PO
== END | disposition home or self-care (01) ==
LOC: SRCNTR 11:46
PROVIDERS: ATTEND Hospitalist
DX: I10 Essential (primary) hypertension (principal); J44.9 Chronic obstructive pulmonary disease, unspecified; E78.5 Hyperlipidemia, unspecified
CPT/HCPCS: Q3014

== ENCOUNTER → 2020-10-31 | Outpatient (CLI) | payer MEDICARE, MEDICAID | END | disposition home or self-care (01) | LOC: SRCNTR 14:11 | PROVIDERS: ATTEND Internal Medicine Cardiovascular Disease | DX: I25.10 Atherosclerotic heart disease of native coronary artery without angina pectoris (principal); I10 Essential (primary) hypertension; E78.5 Hyperlipidemia, unspecified; F99 Mental disorder, not otherwise specified; I62.9 Nontraumatic intracranial hemorrhage, unspecified; Z95.5 Presence of coronary angioplasty implant and graft; F15.10 Other stimulant abuse, uncomplicated | CPT/HCPCS: Q3014 ==

== ENCOUNTER → 2020-11-23 | Outpatient (CLI) | payer MEDICARE, MEDICAID | END | disposition home or self-care (01) | LOC: SRCNTR 10:14 | PROVIDERS: ATTEND Hospitalist | DX: M25.562 Pain in left knee (principal) | CPT/HCPCS: G0463; Z7500 ==

== ENCOUNTER → 2021-02-21 | Outpatient (CLI) | payer MEDICARE, MEDICAID ==
[~2021-02-21] VITALS: Ht 160 cm; Wt 78.5 kg
[~2021-02-21] MED LIST changes: -ATOR20TA86 PO; +ATOR40TA28 PO; +CloNIDine HCL 0.1 MG TABLET PO ONE; +FLUO10CA24 PO; -PROZ10 PO
[2021-02-21 10:26] VITALS: BP 187/104
== END | disposition home or self-care (01) ==
LOC: SRCNTR 10:11
PROVIDERS: ATTEND Hospitalist
DX: I10 Essential (primary) hypertension (principal); I51.9 Heart disease, unspecified; F41.9 Anxiety disorder, unspecified; M19.90 Unspecified osteoarthritis, unspecified site; F32.9 Major depressive disorder, single episode, unspecified; F20.9 Schizophrenia, unspecified; Z87.891 Personal history of nicotine dependence
CPT/HCPCS: G0463